=== PATIENT | female | born 1935 | race Caucasian/White ===

== ENCOUNTER 2017-06-20 16:44 | Inpatient (IN) | payer MEDICARE ==
[~2017-06-20] VITALS: Ht 172.7 cm; Wt 54.0 kg
[~2017-06-20 16:44] MED LIST: ALENDRONATE SOD10 MG ORAL; BUPROPION HCL100 MG ORAL; DIAZEPAM10 MG ORAL; IBUPROFEN200 MG ORAL; SUMATRIPTAN10 GM MC
[2017-06-20 16:45] VITALS: BP 154/80
[2017-06-20] MEDS ORDERED: Morphine Sulfate 4mg/ml Inj IVP ONE (17:15)
[2017-06-20 17:42] LABS: BASOPHILS % (AUTO) 1.2 % (0.0-2.0); EOSINOPHILS % (AUTO) 2.6 % (0.0-3.0); LYMPHOCYTES % (AUTO) 17.1 % (20.0-45.0); MEAN CORPUSCULAR HEMOGLOBIN 27.3 PG (27.0-31.0); MEAN CORPUSCULAR HGB CONC 31.1 G/DL (32.0-36.0); MEAN CORPUSCULAR VOLUME 88 FL (80-99); MEAN PLATELET VOLUME 6.2 FL (6.5-10.1); MONOCYTES % (AUTO) 5.2 % (1.0-10.0); NEUTROPHILS % (AUTO) 73.9 % (45.0-75.0); PLATELET COUNT 497 K/UL (150-450); RED BLOOD COUNT 3.83 M/UL (4.20-5.40); WHITE BLOOD COUNT 8.3 K/UL (4.8-10.8)
--- NOTE | 2017-06-20 17:50 | Emergency Room Report ---
History of Present Illness General Chief Complaint: Lower Extremity Injury Source: EMS Present Illness HPI Patient is an 82-year-old female who presented after increased right-sided hip pain after fall. Patient reports having been vacuuming when subsequently she fell backward onto her right side. She reports having increased pain to her right hip as well as to the back of her head. She denied loss of consciousness. She denied having any fever she reports minimal pain at this time.The patient was seen by physician classroom assistant initially. The patient noted have difficulty with movement of her right lower extremity Allergies: Coded Allergies: No Known Allergies (Unverified , 12/28/13) Patient History Reviewed Nursing Documentation: PMH: Agreed, PSxH: Agreed Nursing Documentation-PMH Past Medical History: No History, Except For Hx Cardiac Problems: Yes - MITRAL VALVE PROLAPSE Hx Hypertension: Yes Hx Cancer: No Hx Gastrointestinal Problems: No Hx Neurological Problems: Yes Hx Headaches: Yes - MIGRAINES IN THE PAST Review of Systems All Other Systems: negative except mentioned in HPI Physical Exam Vital Signs Date Time Temp Pulse Resp B/P (MAP) Pulse Ox O2 Delivery O2 Flow Rate FiO2 06/20/17 16:35 97.7 84 18 144/79 96 Room Air Sp02 EP Interpretation: reviewed, normal General Appearance: normal inspection, well appearing, no apparent distress, alert, GCS 15 Head: atraumatic ENT: normal ENT inspection, hearing grossly normal, normal voice Neck: normal inspection, full range of motion, supple, no bony tend Respiratory: normal inspection, lungs clear, normal breath sounds, no respiratory distress, no retraction, no wheezing Cardiovascular #1: regular rate, rhythm, no edema Gastrointestinal: normal inspection, normal bowel sounds, non tender, soft, no guarding, no hernia Genitourinary: no CVA tenderness Musculoskeletal: normal inspection, back normal, decreased range of motion - right hip Neurologic: normal inspection, alert, responsive, speech normal Psychiatric: normal inspection, judgement/insight normal, mood/affect normal Skin: normal inspection, normal color, no rash Medical Decision Making Diagnostic Impression: Primary Impression: Hip fracture Additional Impression: Mitral valve prolapse ER Course Patient presented after a fall . Differential diagnosis included but was not limited to fracture, contusion, vascular insufficiency, aortic aneurysm, cellulitis.Because of complexity of patient's case laboratory testing and imaging studies were ordered. CT imaging of the right foot showed a comminuted right intertrochanteric fracture. The patient was given IV pain medications. The patient noted be followed by Dr. Dangelo Pierson was contacted for inpatient management. Dr. Pedro Decker was contacted for Orthopedic consult. The patient refused CT imaging of her head. Labs Test 06/21/17 06:14 06/22/17 08:05 06/23/17 04:45 Thyroid Stimulating Hormone (TSH) 3.580 uiU/mL (0.358-3.740) Differential Total Cells Counted 100 Neutrophils % (Manual) 65 % (45-75) Lymphocytes % (Manual) 21 % (20-45) Monocytes % (Manual) 8 % (1-10) Eosinophils % (Manual) 5 % (0-3) Basophils % (Manual) 1 % (0-2) Band Neutrophils 0 % (0-8) Platelet Estimate Adequate Platelet Morphology Normal Hypochromasia 2+ Anisocytosis 1+ Spherocytes 1+ Erythrocyte Sedimentation Rate 39 MM/HR (0-30) Reticulocyte Count 2.9 % (0.0-2.0) Iron Level 42 ug/dL (50-175) Total Iron Binding Capacity 219 ug/dL (250-450) Percent Iron Saturation 19 % (15-50) Unsaturated Iron Binding 177 ug/dL (112-346) Lactate Dehydrogenase 263 U/L (81-234) Vitamin B12 Level 1105 PG/ML (193-986) Folate 65.6 NG/ML (8.6-58.9) White Blood Count 7.4 K/UL (4.8-10.8) Red Blood Count 3.15 M/UL (4.20-5.40) Hemoglobin 9.2 G/DL (12.0-16.0) Hematocrit 27.5 % (37.0-47.0) Mean Corpuscular Volume 87 FL (80-99) Mean Corpuscular Hemoglobin 29.1 PG (27.0-31.0) Mean Corpuscular Hemoglobin Concent 33.3 G/DL (32.0-36.0) Red Cell Distribution Width 11.9 % (11.6-14.8) Platelet Count 437 K/UL (150-450) Mean Platelet Volume 6.2 FL (6.5-10.1) Neutrophils (%) (Auto) 66.2 % (45.0-75.0) Lymphocytes (%) (Auto) 20.8 % (20.0-45.0) Monocytes (%) (Auto) 8.1 % (1.0-10.0) Eosinophils (%) (Auto) 3.6 % (0.0-3.0) Basophils (%) (Auto) 1.3 % (0.0-2.0) Prothrombin Time 10.3 SEC (9.30-11.50) Prothromb Time International Ratio 1.0 (0.9-1.1) Activated Partial Thromboplast Time 26 SEC (23-33) Sodium Level 141 MMOL/L (136-145) Potassium Level 3.8 MMOL/L (3.5-5.1) Chloride Level 106 MMOL/L (98-107) Carbon Dioxide Level 31 MMOL/L (21-32) Anion Gap 4 mmol/L (5-15) Blood Urea Nitrogen 10 mg/dL (7-18) Creatinine 0.7 MG/DL (0.55-1.30) Estimat Glomerular Filtration Rate mL/min (>60) Glucose Level 93 MG/DL (74-106) Calcium Level 8.4 MG/DL (8.5-10.1) Phosphorus Level 3.2 MG/DL (2.5-4.9) Magnesium Level 1.7 MG/DL (1.8-2.4) Total Bilirubin 0.5 MG/DL (0.2-1.0) Aspartate Amino Transf (AST/SGOT) 20 U/L (15-37) Alanine Aminotransferase (ALT/SGPT) 19 U/L (12-78) Alkaline Phosphatase 73 U/L (46-116) Total Protein 5.5 G/DL (6.4-8.2) Albumin 2.6 G/DL (3.4-5.0) Globulin 2.9 g/dL Albumin/Globulin Ratio 0.9 (1.0-2.7) Last Vital Signs Date Time Temp Pulse Resp B/P (MAP) Pulse Ox O2 Delivery O2 Flow Rate FiO2 06/20/17 16:35 97.7 84 18 144/79 96 Room Air Status: unchanged Disposition: ADMITTED INPATIENT Condition: Serious Reji Hudson Jun 20, 2017 17:50
[2017-06-20 17:58] LABS: ANION GAP 10 mmol/L (5-15); CALCIUM 9.7 MG/DL (8.5-10.1); CARBON DIOXIDE 27 MMOL/L (21-32); CHLORIDE 108 MMOL/L (98-107); CREATININE 0.9 MG/DL (0.55-1.30); POTASSIUM 4.3 MMOL/L (3.5-5.1); SODIUM 145 MMOL/L (136-145)
[2017-06-20 17:59] LABS: PROTHROMBIN TIME 10.2 SEC (9.30-11.50)
[2017-06-20 18:03] LABS: ALANINE AMINOTRANSFERASE 22 U/L (12-78); ALBUMIN/GLOBULIN RATIO 1.1 (1.0-2.7); ASPARTATE AMINO TRANSFERASE 27 U/L (15-37); TOTAL PROTEIN 6.6 G/DL (6.4-8.2)
[2017-06-20] MEDS ORDERED: WELLBUTRIN SR100 MG ORAL (18:18)
[2017-06-20] MEDS ORDERED: AMLODIPINE BESYL5 MG ORAL (18:20)
[2017-06-20] MEDS ORDERED: ATORVASTATIN CA20 MG ORAL (18:22)
[2017-06-20] MEDS ORDERED: ASPIRIN81 MG ORAL (18:22)
[2017-06-20 19:00] VITALS: BP 116/85
[2017-06-20] MEDS ORDERED: IBUPROFEN600 MG ORAL (19:02)
[2017-06-20 20:00] VITALS: BP 136/70
[2017-06-20] MEDS ORDERED: Mylanta II UD 30ml ORAL PRN (20:00)
[2017-06-20] MEDS ORDERED: Morphine Sulfate 4mg/ml Inj IVP PRN (20:00)
[2017-06-20] MEDS ORDERED: LORazepam Inj 2mg/ml 1ml IV PRN (20:00)
[2017-06-20] MEDS ORDERED: Miralax 17gm pkt ORAL PRN (20:00)
[2017-06-20] MEDS: Atorvastatin 20mg tab ORAL SCH (22:16)
[2017-06-20] MEDS: Heparin 5000 units/ml inj SUBQ SCH (22:17)
[2017-06-20] MEDS: D5 1/2NS 1,000 ML IV SCH (22:18)
[2017-06-20] MEDS: Morphine Sulfate 2mg/ml Inj IVP PRN (22:41)
[2017-06-21] VITALS: BP 134/76
[2017-06-21 04:00] VITALS: BP 131/74
[2017-06-21 07:23] LABS: BASOPHILS % (AUTO) 2.1 % (0.0-2.0); EOSINOPHILS % (AUTO) 5.9 % (0.0-3.0); LYMPHOCYTES % (AUTO) 24.7 % (20.0-45.0); MEAN CORPUSCULAR HEMOGLOBIN 27.8 PG (27.0-31.0); MEAN CORPUSCULAR HGB CONC 31.7 G/DL (32.0-36.0); MEAN CORPUSCULAR VOLUME 88 FL (80-99); MEAN PLATELET VOLUME 6.2 FL (6.5-10.1); NEUTROPHILS % (AUTO) 59.3 % (45.0-75.0); PLATELET COUNT 431 K/UL (150-450); WHITE BLOOD COUNT 6.8 K/UL (4.8-10.8)
[2017-06-21 07:46] LABS: ALANINE AMINOTRANSFERASE 19 U/L (12-78); ALBUMIN/GLOBULIN RATIO 0.9 (1.0-2.7); ANION GAP 7 mmol/L (5-15); ASPARTATE AMINO TRANSFERASE 26 U/L (15-37); CALCIUM 8.8 MG/DL (8.5-10.1); CARBON DIOXIDE 27 MMOL/L (21-32); CHLORIDE 109 MMOL/L (98-107); CREATININE 0.8 MG/DL (0.55-1.30); POTASSIUM 3.7 MMOL/L (3.5-5.1); SODIUM 143 MMOL/L (136-145); TOTAL PROTEIN 5.9 G/DL (6.4-8.2)
[2017-06-21 08:33] VITALS: BP 128/64
[2017-06-21] MEDS: Heparin 5000 units/ml inj SUBQ SCH ×2 (09:26→20:38)
[2017-06-21] MEDS: Morphine Sulfate 2mg/ml Inj IVP PRN ×3 (09:29→22:00)
--- NOTE | 2017-06-21 10:11 | Diagnostic Imaging Report ---
Indication: Right knee pain Technique: XRAY KNEE THREE VIEWS RIGHT Comparison: None Findings: There is no radiographically evident displaced cortical fracture or dislocation. There is patchy sclerosis involving the anterior proximal tibia. No obvious joint effusion is seen. There is osteopenia. Atherosclerotic changes are noted. Impression: No renographic the evident displaced cortical fracture or dislocation. Mild patchy sclerosis involving the anterior proximal tibia. Subtle insufficiency fracture cannot be excluded. Followup/further evaluation recommended as indicated. Finding discussed with Dr. Bergman 04/21/17 by phone.
--- NOTE | 2017-06-21 10:14 | Diagnostic Imaging Report ---
Indication: Pelvic pain status post fall Technique: CT pelvis was performed utilizing automated exposure control without intravenous contrast material. Axial and coronal images were generated. CT dose: Total DLP 399 mGycm; CTDI vol 10.9 mGy Comparison: None Findings: There is a comminuted right proximal femur intertrochanteric fracture with mild impaction and angulation. Degenerative changes of the spine are noted. There is grade 1 anterolisthesis of L5 on S1. Atherosclerotic changes are seen. There is colonic diverticulosis. Osteopenia is noted. Mild degenerative spurring of the bilateral hips are seen. Impression: Acute comminuted right proximal femur intertrochanteric fracture. The CT scanner at [facility] is accredited by the [employer] and the scans are performed using protocols designed to limit radiation exposure to as low as reasonably achievable to attain images of sufficient resolution adequate for diagnostic evaluation.
[2017-06-21 11:52] VITALS: BP 141/70
[2017-06-21] MEDS: D5 1/2NS 1,000 ML IV SCH (15:09)
[2017-06-21 16:00] VITALS: BP 139/69
--- NOTE | 2017-06-21 16:01 | Consultation ---
Consult Note Consult Note patient seen/evaluated. right hip IT fx. 2D echo tomorrow. Optimization for surgery tomorrow and proceed with surgery Friday afternoon. Risk/Benefit and complications were discussed and patient understands and agrees.\ Thank you RITA MERINO Jun 21, 2017 16:01
--- NOTE | 2017-06-21 16:54 | Consultation ---
History of Present Illness General Date patient seen: Jun 20, 2017 Chief Complaint: Lower Extremity Injury Reason for Consultation: inpatient management Present Illness HPI Patient is an 82-year-old female with hx of depression, anxiety, HTN presented to ER with CC of increased right-sided hip pain after fall. Patient reports having been vacuuming when subsequently she fell backward onto her right side. She reports having increased pain to her right hip as well as to the back of her head. She denied loss of consciousness. She was diagnosed to have right hip fracture and admitted for further work up. Allergies: Coded Allergies: No Known Allergies (Unverified , 12/28/13) Medication History Scheduled Amlodipine Besylate* (Amlodipine Besylate*), 5 MG ORAL DAILY, (Reported) Aspirin* (Aspirin*), 81 MG ORAL DAILY, (Reported) Atorvastatin Calcium* (Atorvastatin Calcium*), 20 MG ORAL BEDTIME, (Reported) Bupropion Sr* (Wellbutrin Sr*), 150 MG ORAL TWICE A DAY, (Reported) Diazepam* (Diazepam*), 10 MG ORAL PRN, (Reported) Ibuprofen (Ibuprofen*), 200 MG ORAL Q6H, (Reported) Discontinued Medications Alendronate Sodium* (Fosamax*), Unknown Dose ORAL QWEEK, (Reported) Discontinued Reason: Pt stopped taking med Bupropion Hcl* (Bupropion Hcl*), 150 MG ORAL DAILY, (Reported) Discontinued Reason: Medication dose changed Sumatriptan (Sumatriptan), 10 GM MC PRN, (Reported) Discontinued Reason: Pt stopped taking med Patient History Healthcare decision maker JESSICA TIMMONS Resuscitation status Full Code Advanced Directive on File N/A Past Medical/Surgical History Past Medical/Surgical History: (1) Depression (2) Mitral valve prolapse Review of Systems All Other Systems: negative except mentioned in HPI Physical Exam General Appearance: WD/WN Lines, tubes and drains: peripheral HEENT: normocephalic, atraumatic Neck: non-tender, normal alignment Respiratory/Chest: chest wall non-tender, normal breath sounds Cardiovascular/Chest: normal peripheral pulses, normal rate Abdomen: normal bowel sounds, non tender Extremities: normal range of motion, non-tender Skin Exam: normal pigmentation 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 Last 24 Hour Vital Signs Date Time Temp Pulse Resp B/P (MAP) Pulse Ox O2 Delivery O2 Flow Rate FiO2 06/21/17 15:22 97.0 06/21/17 11:52 97.0 80 18 141/70 100 Room Air 06/21/17 09:22 77 128/64 06/21/17 08:33 99.3 77 18 128/64 99 Room Air 06/21/17 04:00 97.9 84 18 131/74 95 Room Air 06/21/17 00:00 97.9 81 18 134/76 97 Room Air 06/20/17 20:00 98.3 89 18 136/70 96 Room Air 06/20/17 19:00 97.9 98 19 116/85 100 Room Air 06/20/17 19:00 97.7 98 18 116/85 100 Room Air 06/20/17 18:11 97.9 Intake and Output 06/21/17 06/22/17 19:00 07:00 Intake Total 810 ml Balance 810 ml Intake Oral 360 ml IV Total 450 ml # Voids 2 Laboratory Tests Test 06/20/17 17:30 06/21/17 06:14 White Blood Count 8.3 K/UL (4.8-10.8) 6.8 K/UL (4.8-10.8) Red Blood Count 3.83 M/UL (4.20-5.40) L 3.40 M/UL (4.20-5.40) L Hemoglobin 10.5 G/DL (12.0-16.0) L 9.4 G/DL (12.0-16.0) L Hematocrit 33.6 % (37.0-47.0) L 29.8 % (37.0-47.0) L Mean Corpuscular Volume 88 FL (80-99) 88 FL (80-99) Mean Corpuscular Hemoglobin 27.3 PG (27.0-31.0) 27.8 PG (27.0-31.0) Mean Corpuscular Hemoglobin Concent 31.1 G/DL (32.0-36.0) L 31.7 G/DL (32.0-36.0) L Red Cell Distribution Width 12.0 % (11.6-14.8) 12.0 % (11.6-14.8) Platelet Count 497 K/UL (150-450) H 431 K/UL (150-450) Mean Platelet Volume 6.2 FL (6.5-10.1) L 6.2 FL (6.5-10.1) L Neutrophils (%) (Auto) 73.9 % (45.0-75.0) 59.3 % (45.0-75.0) Lymphocytes (%) (Auto) 17.1 % (20.0-45.0) L 24.7 % (20.0-45.0) Monocytes (%) (Auto) 5.2 % (1.0-10.0) 8.0 % (1.0-10.0) Eosinophils (%) (Auto) 2.6 % (0.0-3.0) 5.9 % (0.0-3.0) H Basophils (%) (Auto) 1.2 % (0.0-2.0) 2.1 % (0.0-2.0) H Prothrombin Time 10.2 SEC (9.30-11.50) Prothromb Time International Ratio 1.0 (0.9-1.1) Activated Partial Thromboplast Time 23 SEC (23-33) Sodium Level 145 MMOL/L (136-145) 143 MMOL/L (136-145) Potassium Level 4.3 MMOL/L (3.5-5.1) 3.7 MMOL/L (3.5-5.1) Chloride Level 108 MMOL/L (98-107) H 109 MMOL/L (98-107) H Carbon Dioxide Level 27 MMOL/L (21-32) 27 MMOL/L (21-32) Anion Gap 10 mmol/L (5-15) 7 mmol/L (5-15) Blood Urea Nitrogen 24 mg/dL (7-18) H 18 mg/dL (7-18) Creatinine 0.9 MG/DL (0.55-1.30) 0.8 MG/DL (0.55-1.30) Estimat Glomerular Filtration Rate mL/min (>60) mL/min (>60) Glucose Level 90 MG/DL (74-106) 85 MG/DL (74-106) Calcium Level 9.7 MG/DL (8.5-10.1) 8.8 MG/DL (8.5-10.1) Total Bilirubin 0.7 MG/DL (0.2-1.0) 0.6 MG/DL (0.2-1.0) Aspartate Amino Transf (AST/SGOT) 27 U/L (15-37) 26 U/L (15-37) Alanine Aminotransferase (ALT/SGPT) 22 U/L (12-78) 19 U/L (12-78) Alkaline Phosphatase 78 U/L (46-116) 66 U/L (46-116) Total Protein 6.6 G/DL (6.4-8.2) 5.9 G/DL (6.4-8.2) L Albumin 3.5 G/DL (3.4-5.0) 2.8 G/DL (3.4-5.0) L Globulin 3.1 g/dL 3.1 g/dL Albumin/Globulin Ratio 1.1 (1.0-2.7) 0.9 (1.0-2.7) L Thyroid Stimulating Hormone (TSH) 3.580 uiU/mL (0.358-3.740) Height (Feet): 5 Height (Inches): 8.00 Weight (Pounds): 119 Medications Current Medications Medications (Trade) Dose Ordered Sig/Jennifer Route PRN Reason Start Time Stop Time Status Last Admin Dose Admin Acetaminophen (Tylenol) 650 mg Q4H PRN ORAL fever 06/20/17 20:00 07/20/17 19:59 Al Hydroxide/Mg Hydroxide (Mylanta II) 30 ml Q6H PRN ORAL dyspepsia 06/20/17 20:00 07/20/17 19:59 Amlodipine Besylate (Norvasc) 5 mg DAILY ORAL 06/21/17 09:00 07/21/17 08:59 06/21/17 09:22 Atorvastatin Calcium (Lipitor) 20 mg BEDTIME ORAL 06/20/17 21:00 07/20/17 20:59 06/20/17 22:16 Bupropion HCl (Wellbutrin SR) 150 mg TWICE A DAY ORAL 06/21/17 21:00 07/21/17 20:59 Dextrose (Dextrose 50%) STAT PRN IV Hypoglycemia 06/20/17 20:00 07/20/17 19:59 Dextrose/Sodium Chloride 1,000 ml @ 50 mls/hr Q20H IV 06/20/17 20:30 1/7/18 20:29 06/21/17 15:09 Heparin Sodium (Porcine) (Heparin 5000 units/ml) 5,000 units EVERY 12 HOURS SUBQ 06/20/17 21:00 07/20/17 20:59 06/21/17 09:26 Lorazepam (Ativan 2mg/ml 1ml) 0.5 mg Q4H PRN IV For Anxiety 06/20/17 20:00 06/27/17 19:59 Morphine Sulfate (Morphine Sulfate) 2 mg Q4H PRN IVP For Pain 4-6 06/20/17 20:00 06/27/17 19:59 06/21/17 14:52 Morphine Sulfate (Morphine Sulfate) 4 mg Q4H PRN IVP For Pain 7-10 06/20/17 20:00 06/27/17 19:59 Ondansetron HCl (Zofran) 4 mg Q6H PRN IVP Nausea & Vomiting 06/20/17 20:00 07/20/17 19:59 Polyethylene Glycol (Miralax) 17 gm HSPRN PRN ORAL Constipation 06/20/17 20:00 07/20/17 19:59 Sodium Chloride 1,000 ml @ 75 mls/hr [id number] IVLG 06/22/17 23:55 07/22/17 23:54 Zolpidem Tartrate (Ambien) 5 mg HSPRN PRN ORAL Insomnia 06/20/17 20:00 06/27/17 19:59 Assessment/Plan Problem List: (1) Hip fracture ICD Codes: S72.009A - Fracture of unspecified part of neck of unspecified femur , initial encounter for closed fracture SNOMED: 569161674 (2) Depression ICD Codes: F32.9 - Depression SNOMED: 59917450 (3) Mitral valve prolapse ICD Codes: I34.1 - Mitral valve prolapse SNOMED: 881483509 Assessment/Plan surgical evaluation echo symptomatic treatment dvt prophylaxis. MINDI WALDEN Jun 21, 2017 16:53
--- NOTE | 2017-06-21 16:55 | Pulmonology Progress Note ---
Assessment/Plan Problems: (1) Hip fracture (2) Depression (3) Mitral valve prolapse Assessment/Plan seen by ortho pain is controlled dvt prophylaxis Echo pending Subjective ROS Limited/Unobtainable: No Constitutional: Reports: no symptoms HEENT: Repors: no symptoms Respiratory: Reports: no symptoms Cardiovascular: Reports: no symptoms Allergies: Coded Allergies: No Known Allergies (Unverified , 12/28/13) Objective Last 24 Hour Vital Signs Date Time Temp Pulse Resp B/P (MAP) Pulse Ox O2 Delivery O2 Flow Rate FiO2 06/21/17 15:22 97.0 06/21/17 11:52 97.0 80 18 141/70 100 Room Air 06/21/17 09:22 77 128/64 06/21/17 08:33 99.3 77 18 128/64 99 Room Air 06/21/17 04:00 97.9 84 18 131/74 95 Room Air 06/21/17 00:00 97.9 81 18 134/76 97 Room Air 06/20/17 20:00 98.3 89 18 136/70 96 Room Air 06/20/17 19:00 97.9 98 19 116/85 100 Room Air 06/20/17 19:00 97.7 98 18 116/85 100 Room Air 06/20/17 18:11 97.9 Intake and Output 06/21/17 06/22/17 19:00 07:00 Intake Total 810 ml Balance 810 ml Intake Oral 360 ml IV Total 450 ml # Voids 2 General Appearance: WD/WN HEENT: normocephalic, atraumatic Respiratory/Chest: chest wall non-tender, lungs clear, normal breath sounds Breasts: no masses Cardiovascular: normal peripheral pulses, normal rate Abdomen: normal bowel sounds, soft, non tender, no organomegaly Genitourinary: normal external genitalia Extremities: no cyanosis Skin: no rash, no ulcers 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, no motor/sensory deficits Laboratory Tests 06/20/17 17:30: White Blood Count 8.3, Red Blood Count 3.83L, Hemoglobin 10.5L, Hematocrit 33.6L , Mean Corpuscular Volume 88, Mean Corpuscular Hemoglobin 27.3, Mean Corpuscular Hemoglobin Concent 31.1L, Red Cell Distribution Width 12.0, Platelet Count 497H, Mean Platelet Volume 6.2L, Neutrophils (%) (Auto) 73.9, Lymphocytes (%) (Auto) 17.1L, Monocytes (%) (Auto) 5.2, Eosinophils (%) (Auto) 2.6, Basophils (%) (Auto) 1.2, Prothrombin Time 10.2, Prothromb Time International Ratio 1.0, Activated Partial Thromboplast Time 23, Sodium Level 145, Potassium Level 4.3, Chloride Level 108H, Carbon Dioxide Level 27, Anion Gap 10, Blood Urea Nitrogen 24H, Creatinine 0.9, Estimat Glomerular Filtration Rate , Glucose Level 90, Calcium Level 9.7, Total Bilirubin 0.7, Aspartate Amino Transf (AST/SGOT) 27, Alanine Aminotransferase (ALT/SGPT) 22, Alkaline Phosphatase 78, Total Protein 6.6, Albumin 3.5, Globulin 3.1, Albumin/Globulin Ratio 1.1 06/21/17 06:14: White Blood Count 6.8, Red Blood Count 3.40L, Hemoglobin 9.4L, Hematocrit 29.8L , Mean Corpuscular Volume 88, Mean Corpuscular Hemoglobin 27.8, Mean Corpuscular Hemoglobin Concent 31.7L, Red Cell Distribution Width 12.0, Platelet Count 431, Mean Platelet Volume 6.2L, Neutrophils (%) (Auto) 59.3, Lymphocytes (%) (Auto) 24.7, Monocytes (%) (Auto) 8.0, Eosinophils (%) (Auto) 5.9H, Basophils (%) (Auto) 2.1H, Sodium Level 143, Potassium Level 3.7, Chloride Level 109H, Carbon Dioxide Level 27, Anion Gap 7, Blood Urea Nitrogen 18, Creatinine 0.8, Estimat Glomerular Filtration Rate , Glucose Level 85, Calcium Level 8.8, Total Bilirubin 0.6, Aspartate Amino Transf (AST/SGOT) 26, Alanine Aminotransferase (ALT/SGPT) 19, Alkaline Phosphatase 66, Total Protein 5.9L, Albumin 2.8L, Globulin 3.1, Albumin/Globulin Ratio 0.9L, Thyroid Stimulating Hormone (TSH) 3.580 Current Medications Medications (Trade) Dose Ordered Sig/Jennifer Route PRN Reason Start Time Stop Time Status Last Admin Dose Admin Acetaminophen (Tylenol) 650 mg Q4H PRN ORAL fever 06/20/17 20:00 07/20/17 19:59 Al Hydroxide/Mg Hydroxide (Mylanta II) 30 ml Q6H PRN ORAL dyspepsia 06/20/17 20:00 07/20/17 19:59 Amlodipine Besylate (Norvasc) 5 mg DAILY ORAL 06/21/17 09:00 07/21/17 08:59 06/21/17 09:22 Atorvastatin Calcium (Lipitor) 20 mg BEDTIME ORAL 06/20/17 21:00 07/20/17 20:59 06/20/17 22:16 Bupropion HCl (Wellbutrin SR) 150 mg TWICE A DAY ORAL 06/21/17 21:00 07/21/17 20:59 Dextrose (Dextrose 50%) STAT PRN IV Hypoglycemia 06/20/17 20:00 07/20/17 19:59 Dextrose/Sodium Chloride 1,000 ml @ 50 mls/hr Q20H IV 06/20/17 20:30 07/20/17 20:29 06/21/17 15:09 Heparin Sodium (Porcine) (Heparin 5000 units/ml) 5,000 units EVERY 12 HOURS SUBQ 06/20/17 21:00 07/20/17 20:59 06/21/17 09:26 Lorazepam (Ativan 2mg/ml 1ml) 0.5 mg Q4H PRN IV For Anxiety 06/20/17 20:00 06/27/17 19:59 Morphine Sulfate (Morphine Sulfate) 2 mg Q4H PRN IVP For Pain 4-6 06/20/17 20:00 06/27/17 19:59 06/21/17 14:52 Morphine Sulfate (Morphine Sulfate) 4 mg Q4H PRN IVP For Pain 7-10 06/20/17 20:00 06/27/17 19:59 Ondansetron HCl (Zofran) 4 mg Q6H PRN IVP Nausea & Vomiting 06/20/17 20:00 07/20/17 19:59 Polyethylene Glycol (Miralax) 17 gm HSPRN PRN ORAL Constipation 06/20/17 20:00 07/20/17 19:59 Sodium Chloride 1,000 ml @ 75 mls/hr [id number] IVLG 06/22/17 23:55 07/22/17 23:54 Zolpidem Tartrate (Ambien) 5 mg HSPRN PRN ORAL Insomnia 06/20/17 20:00 06/27/17 19:59 MINDI WALDEN Jun 21, 2017 16:55
[2017-06-21] MEDS ORDERED: D5 1/2NS 1000ml IV ONE (17:26)
--- NOTE | 2017-06-21 19:50 | History & Physical ---
History and Physical History & Physicial Thomas Pierson MD Jun 21, 2017 19:50
[2017-06-21 20:00] VITALS: BP 128/62
[2017-06-21] MEDS: Atorvastatin 20mg tab ORAL SCH (20:33)
[2017-06-21] MEDS: BuPROPion SR 150mg tab ORAL SCH ×2 (20:33→20:38)
[2017-06-22 04:00] VITALS: BP 112/65
[2017-06-22] MEDS: Zolpidem 5mg tab ORAL PRN (04:47)
[2017-06-22] MEDS: Morphine Sulfate 2mg/ml Inj IVP PRN ×3 (07:34→20:46)
[2017-06-22 08:13] VITALS: BP 124/63
[2017-06-22] MEDS: BuPROPion SR 150mg tab ORAL SCH ×2 (09:00→17:02)
[2017-06-22 09:06] LABS: BASOPHILS % (AUTO) 1.2 % (0.0-2.0); EOSINOPHILS % (AUTO) 4.3 % (0.0-3.0); LYMPHOCYTES % (AUTO) 22.4 % (20.0-45.0); MEAN CORPUSCULAR HEMOGLOBIN 28.7 PG (27.0-31.0); MEAN CORPUSCULAR HGB CONC 32.8 G/DL (32.0-36.0); MEAN CORPUSCULAR VOLUME 88 FL (80-99); MEAN PLATELET VOLUME 6.2 FL (6.5-10.1); MONOCYTES % (AUTO) 7.7 % (1.0-10.0); NEUTROPHILS % (AUTO) 64.5 % (45.0-75.0); PLATELET COUNT 451 K/UL (150-450); RED BLOOD COUNT 3.28 M/UL (4.20-5.40); RED CELL DISTRIBUTION WIDTH 11.8 % (11.6-14.8)
[2017-06-22 09:17] LABS: LACTATE DEHYDROGENASE 263 U/L (81-234)
[2017-06-22] MEDS: Heparin 5000 units/ml inj SUBQ SCH ×2 (09:27→20:56)
[2017-06-22 10:10] LABS: PATH BLOOD SMEAR/OMC SENT TO PATHOLOGIST; RETICULOCYTE COUNT 2.9 % (0.0-2.0)
[2017-06-22 10:20] LABS: ERYTHROCYTE SEDIMENTATION RATE 39 MM/HR (0-30)
[2017-06-22 10:30] LABS: FOLIC ACID 65.6 NG/ML (8.6-58.9); IRON 42 ug/dL (50-175); TOTAL IRON BINDING CAPACITY 219 ug/dL (250-450)
[2017-06-22 10:59] LABS: BAND NEUTROPHILS % (MANUAL) 0 % (0-8); BASOPHILS % (MANUAL) 1 % (0-2); EOSINOPHILS % (MANUAL) 5 % (0-3); LYMPHOCYTES % (MANUAL) 21 % (20-45); NEUTROPHILS % (MANUAL) 65 % (45-75); PLATELET ESTIMATE ADEQUATE; PLATELET MORPHOLOGY NORMAL; TOTAL CELLS COUNTED 100
[2017-06-22 11:00] LABS: ANISOCYTOSIS 1+; HYPOCHROMASIA 2+; SPHEROCYTES 1+
[2017-06-22 11:54] VITALS: BP 117/63
[2017-06-22] MEDS: D5 1/2NS 1,000 ML IV SCH (12:24)
--- NOTE | 2017-06-22 15:15 | Consultation ---
History of Present Illness General Date patient seen: Jun 22, 2017 Present Illness Allergies: Coded Allergies: No Known Allergies (Unverified , 12/28/13) Medication History Scheduled Amlodipine Besylate* (Amlodipine Besylate*), 5 MG ORAL DAILY, (Reported) Aspirin* (Aspirin*), 81 MG ORAL DAILY, (Reported) Atorvastatin Calcium* (Atorvastatin Calcium*), 20 MG ORAL BEDTIME, (Reported) Bupropion Sr* (Wellbutrin Sr*), 150 MG ORAL TWICE A DAY, (Reported) Diazepam* (Diazepam*), 10 MG ORAL PRN, (Reported) Ibuprofen (Ibuprofen*), 200 MG ORAL Q6H, (Reported) Discontinued Medications Alendronate Sodium* (Fosamax*), Unknown Dose ORAL QWEEK, (Reported) Discontinued Reason: Pt stopped taking med Bupropion Hcl* (Bupropion Hcl*), 150 MG ORAL DAILY, (Reported) Discontinued Reason: Medication dose changed Sumatriptan (Sumatriptan), 10 GM MC PRN, (Reported) Discontinued Reason: Pt stopped taking med Patient History Healthcare decision maker JESSICA TIMMONS Resuscitation status Full Code Advanced Directive on File N/A Physical Exam Last 24 Hour Vital Signs Date Time Temp Pulse Resp B/P (MAP) Pulse Ox O2 Delivery O2 Flow Rate FiO2 06/22/17 11:54 98.0 72 19 117/63 97 06/22/17 09:22 72 124/63 06/22/17 08:13 99.0 72 20 124/63 98 06/22/17 08:04 99.0 06/22/17 04:00 98.1 75 19 112/65 99 06/22/17 04:00 Room Air 06/21/17 20:00 Room Air 06/21/17 20:00 98.9 83 18 128/62 100 06/21/17 16:00 97.8 88 18 139/69 100 Room Air Intake and Output 06/22/17 06/23/17 19:00 07:00 Intake Total 830 ml Balance 830 ml Intake Oral 680 ml IV Total 150 ml # Voids 1 Laboratory Tests Test 06/22/17 08:05 White Blood Count 7.0 K/UL (4.8-10.8) Red Blood Count 3.28 M/UL (4.20-5.40) L Hemoglobin 9.4 G/DL (12.0-16.0) L Hematocrit 28.7 % (37.0-47.0) L Mean Corpuscular Volume 88 FL (80-99) Mean Corpuscular Hemoglobin 28.7 PG (27.0-31.0) Mean Corpuscular Hemoglobin Concent 32.8 G/DL (32.0-36.0) Red Cell Distribution Width 11.8 % (11.6-14.8) Platelet Count 451 K/UL (150-450) H Mean Platelet Volume 6.2 FL (6.5-10.1) L Neutrophils (%) (Auto) 64.5 % (45.0-75.0) Lymphocytes (%) (Auto) 22.4 % (20.0-45.0) Monocytes (%) (Auto) 7.7 % (1.0-10.0) Eosinophils (%) (Auto) 4.3 % (0.0-3.0) H Basophils (%) (Auto) 1.2 % (0.0-2.0) Differential Total Cells Counted 100 Neutrophils % (Manual) 65 % (45-75) Lymphocytes % (Manual) 21 % (20-45) Monocytes % (Manual) 8 % (1-10) Eosinophils % (Manual) 5 % (0-3) H Basophils % (Manual) 1 % (0-2) Band Neutrophils 0 % (0-8) Platelet Estimate Adequate Platelet Morphology Normal Hypochromasia 2+ Anisocytosis 1+ Spherocytes 1+ Erythrocyte Sedimentation Rate 39 MM/HR (0-30) H Reticulocyte Count 2.9 % (0.0-2.0) H Prothrombin Time 10.0 SEC (9.30-11.50) Prothromb Time International Ratio 1.0 (0.9-1.1) Activated Partial Thromboplast Time 24 SEC (23-33) Iron Level 42 ug/dL (50-175) L Total Iron Binding Capacity 219 ug/dL (250-450) L Percent Iron Saturation 19 % (15-50) Unsaturated Iron Binding 177 ug/dL (112-346) Lactate Dehydrogenase 263 U/L (81-234) H Vitamin B12 Level 1105 PG/ML (193-986) H Folate 65.6 NG/ML (8.6-58.9) H Height (Feet): 5 Height (Inches): 8.00 Weight (Pounds): 119 Medications Current Medications Medications (Trade) Dose Ordered Sig/Jennifer Route PRN Reason Start Time Stop Time Status Last Admin Dose Admin Acetaminophen (Tylenol) 650 mg Q4H PRN ORAL fever 06/20/17 20:00 07/20/17 19:59 Al Hydroxide/Mg Hydroxide (Mylanta II) 30 ml Q6H PRN ORAL dyspepsia 06/20/17 20:00 07/20/17 19:59 Amlodipine Besylate (Norvasc) 5 mg DAILY ORAL 06/21/17 09:00 07/21/17 08:59 06/22/17 09:22 Atorvastatin Calcium (Lipitor) 20 mg BEDTIME ORAL 06/20/17 21:00 07/20/17 20:59 06/21/17 20:33 Bupropion HCl (Wellbutrin SR) 150 mg TWICE A DAY ORAL 06/21/17 21:00 07/21/17 20:59 Dextrose (Dextrose 50%) STAT PRN IV Hypoglycemia 06/20/17 20:00 07/20/17 19:59 Dextrose/Sodium Chloride 1,000 ml @ 50 mls/hr Q20H IV 06/20/17 20:30 07/20/17 20:29 06/22/17 12:24 Heparin Sodium (Porcine) (Heparin 5000 units/ml) 5,000 units EVERY 12 HOURS SUBQ 06/20/17 21:00 07/20/17 20:59 06/22/17 09:27 Lorazepam (Ativan 2mg/ml 1ml) 0.5 mg Q4H PRN IV For Anxiety 06/20/17 20:00 06/27/17 19:59 Morphine Sulfate (Morphine Sulfate) 2 mg Q4H PRN IVP For Pain 4-6 06/20/17 20:00 06/27/17 19:59 06/22/17 15:03 Morphine Sulfate (Morphine Sulfate) 4 mg Q4H PRN IVP For Pain 7-10 06/20/17 20:00 06/27/17 19:59 Ondansetron HCl (Zofran) 4 mg Q6H PRN IVP Nausea & Vomiting 06/20/17 20:00 07/20/17 19:59 Polyethylene Glycol (Miralax) 17 gm HSPRN PRN ORAL Constipation 06/20/17 20:00 07/20/17 19:59 Sodium Chloride 1,000 ml @ 75 mls/hr [id number] IVLG 06/22/17 23:55 07/22/17 23:54 Zolpidem Tartrate (Ambien) 5 mg HSPRN PRN ORAL Insomnia 06/20/17 20:00 06/27/17 19:59 06/22/17 04:47 Assessment/Plan Assessment/Plan (1) Right hip pain (2) Right hip Fracture seen dictated. REBECCA JOHNSON Jun 22, 2017 15:15
[2017-06-22 15:42] VITALS: BP 119/56
--- NOTE | 2017-06-22 17:00 | Consultation ---
DATE OF CONSULTATION: 06/21/2017 ORTHOPEDIC CONSULTATION CONSULTING PHYSICIAN: Pedro Decker M.D. REASON FOR CONSULTATION: Right-sided hip fracture after a mechanical fall. BRIEF HISTORY: The patient is a pleasant 82-year-old female who was apparently ambulating and was doing some vacuuming when she lost her balance and fell backwards. There was no syncopal episode. She had significant pain about the right hip. She was admitted to [facility]. A CT scan of the right hip showed a right-sided hip intertrochanteric fracture. Orthopedic consultation was obtained. The patient is ambulatory. She lives at home independently. PAST MEDICAL HISTORY: Significant for history of mitral valve prolapse and migraine headaches. PAST SURGICAL HISTORY: Not available. MEDICATIONS: Please see chart. ALLERGIES: No known drug allergies. SOCIAL HISTORY: She does not smoke or drink. She is an ambulator and she lives independently. FAMILY HISTORY: Noncontributory. REVIEW OF SYSTEMS: Reviewed and reconciled except for cardiac issues and migraines in the past, there are no other significant findings. There are no constitutional symptoms. There is no shortness of breath or orthopnea. PHYSICAL EXAMINATION: Exam of the patient revealed this is a very pleasant lady, cooperative with the examination. Examination of the right hip revealed that she has got lot of pain about the right hip. The right hip with shortening of external rotators. She has pain over the areas. Neurovascular examination is intact. DIAGNOSTIC DATA: CT scan of the right hip is reviewed. There is evidence of intertrochanteric fracture. IMPRESSION: Right hip intertrochanteric fracture in an 82-year-old, ambulatory lady. DISCUSSION: At this time, I had a discussion with the patient. I explained to her my findings. I recommend proceeding with right hip open reduction and internal fixation with a short gamma nail. Risks, benefits, and complications of the surgery were thoroughly discussed with her. Risks of infection, bleeding, and neurovascularly complications were discussed with her. She understands and agrees. All questions were answered. At this time, we will get a 2D echo and if there is a significant finding, possibly the patient requires cardiac clearance. All questions were answered. We will proceed with surgery once she is medically optimized. Pedro Steven Decker DR: RADHA JOB#: [id number] CC: MARY
--- NOTE | 2017-06-22 17:27 | Pulmonology Progress Note ---
Assessment/Plan Problems: (1) Hip fracture (2) Depression (3) Mitral valve prolapse Assessment/Plan pain controlled pain is controlled dvt prophylaxis Echo pending Subjective ROS Limited/Unobtainable: No Constitutional: Reports: no symptoms HEENT: Repors: no symptoms Respiratory: Reports: no symptoms Allergies: Coded Allergies: No Known Allergies (Unverified , 12/28/13) Objective Last 24 Hour Vital Signs Date Time Temp Pulse Resp B/P (MAP) Pulse Ox O2 Delivery O2 Flow Rate FiO2 06/22/17 15:42 98.2 81 20 119/56 100 06/22/17 15:33 98.0 06/22/17 11:54 98.0 72 19 117/63 97 06/22/17 09:22 72 124/63 06/22/17 08:13 99.0 72 20 124/63 98 06/22/17 04:00 98.1 75 19 112/65 99 06/22/17 04:00 Room Air 06/21/17 20:00 Room Air 06/21/17 20:00 98.9 83 18 128/62 100 Intake and Output 06/22/17 06/23/17 19:00 07:00 Intake Total 830 ml Balance 830 ml Intake Oral 680 ml IV Total 150 ml # Voids 1 Objective General Appearance: WD/WN Lines, tubes and drains: peripheral, HEENT: normocephalic, atraumatic Neck: non-tender, normal alignment Respiratory/Chest: chest wall non-tender, lungs clear, normal breath sounds Breasts: no masses Cardiovascular/Chest: normal rate Abdomen: normal bowel sounds Extremities: normal range of motion Laboratory Tests 06/22/17 08:05: White Blood Count 7.0, Red Blood Count 3.28L, Hemoglobin 9.4L, Hematocrit 28.7L , Mean Corpuscular Volume 88, Mean Corpuscular Hemoglobin 28.7, Mean Corpuscular Hemoglobin Concent 32.8, Red Cell Distribution Width 11.8, Platelet Count 451H, Mean Platelet Volume 6.2L, Neutrophils (%) (Auto) 64.5, Lymphocytes (%) (Auto) 22.4, Monocytes (%) (Auto) 7.7, Eosinophils (%) (Auto) 4.3H, Basophils (%) (Auto) 1.2, Differential Total Cells Counted 100, Neutrophils % ( Manual) 65, Lymphocytes % (Manual) 21, Monocytes % (Manual) 8, Eosinophils % ( Manual) 5H, Basophils % (Manual) 1, Band Neutrophils 0, Platelet Estimate Adequate, Platelet Morphology Normal, Hypochromasia 2+, Anisocytosis 1+, Spherocytes 1+, Erythrocyte Sedimentation Rate 39H, Reticulocyte Count 2.9H, Prothrombin Time 10.0, Prothromb Time International Ratio 1.0, Activated Partial Thromboplast Time 24, Iron Level 42L, Total Iron Binding Capacity 219L, Percent Iron Saturation 19, Unsaturated Iron Binding 177, Lactate Dehydrogenase 263H, Vitamin B12 Level 1105H, Folate 65.6H Current Medications Medications (Trade) Dose Ordered Sig/Jennifer Route PRN Reason Start Time Stop Time Status Last Admin Dose Admin Acetaminophen (Tylenol) 650 mg Q4H PRN ORAL fever 06/20/17 20:00 07/20/17 19:59 Al Hydroxide/Mg Hydroxide (Mylanta II) 30 ml Q6H PRN ORAL dyspepsia 06/20/17 20:00 07/20/17 19:59 Amlodipine Besylate (Norvasc) 5 mg DAILY ORAL 06/21/17 09:00 07/21/17 08:59 06/22/17 09:22 Atorvastatin Calcium (Lipitor) 20 mg BEDTIME ORAL 06/20/17 21:00 07/20/17 20:59 06/21/17 20:33 Bupropion HCl (Wellbutrin SR) 150 mg TWICE A DAY ORAL 06/21/17 21:00 07/21/17 20:59 Dextrose (Dextrose 50%) STAT PRN IV Hypoglycemia 06/20/17 20:00 07/20/17 19:59 Dextrose/Sodium Chloride 1,000 ml @ 50 mls/hr Q20H IV 06/20/17 20:30 07/20/17 20:29 06/22/17 12:24 Heparin Sodium (Porcine) (Heparin 5000 units/ml) 5,000 units EVERY 12 HOURS SUBQ 06/20/17 21:00 07/20/17 20:59 06/22/17 09:27 Lidocaine (Lidoderm 5% PATCH) 1 patch DAILY TDERMAL 06/22/17 16:00 07/22/17 15:59 Lorazepam (Ativan 2mg/ml 1ml) 0.5 mg Q4H PRN IV For Anxiety 06/20/17 20:00 06/27/17 19:59 Morphine Sulfate (Morphine Sulfate) 2 mg Q4H PRN IVP For Pain 4-6 06/20/17 20:00 06/27/17 19:59 06/22/17 15:03 Morphine Sulfate (Morphine Sulfate) 4 mg Q4H PRN IVP For Pain 7-10 06/20/17 20:00 06/27/17 19:59 Ondansetron HCl (Zofran) 4 mg Q6H PRN IVP Nausea & Vomiting 06/20/17 20:00 07/20/17 19:59 Polyethylene Glycol (Miralax) 17 gm HSPRN PRN ORAL Constipation 06/20/17 20:00 07/20/17 19:59 Sodium Chloride 1,000 ml @ 75 mls/hr [id number] IVLG 06/22/17 23:55 07/22/17 23:54 Zolpidem Tartrate (Ambien) 5 mg HSPRN PRN ORAL Insomnia 06/20/17 20:00 06/27/17 19:59 06/22/17 04:47 MINDI WALDEN Jun 22, 2017 17:27
--- NOTE | 2017-06-22 18:01 | Internal Med Progress Note ---
Subjective Physician Name Thomas Pierson Attending Physician Thomas Pierson MD Current Medications Medications (Trade) Dose Ordered Sig/Jennifer Route PRN Reason Start Time Stop Time Status Last Admin Dose Admin Acetaminophen (Tylenol) 650 mg Q4H PRN ORAL fever 06/20/17 20:00 07/20/17 19:59 Al Hydroxide/Mg Hydroxide (Mylanta II) 30 ml Q6H PRN ORAL dyspepsia 06/20/17 20:00 07/20/17 19:59 Amlodipine Besylate (Norvasc) 5 mg DAILY ORAL 06/21/17 09:00 07/21/17 08:59 06/22/17 09:22 Atorvastatin Calcium (Lipitor) 20 mg BEDTIME ORAL 06/20/17 21:00 07/20/17 20:59 06/21/17 20:33 Bupropion HCl (Wellbutrin SR) 150 mg TWICE A DAY ORAL 06/21/17 21:00 07/21/17 20:59 Dextrose (Dextrose 50%) STAT PRN IV Hypoglycemia 06/20/17 20:00 07/20/17 19:59 Dextrose/Sodium Chloride 1,000 ml @ 50 mls/hr Q20H IV 06/20/17 20:30 07/20/17 20:29 06/22/17 12:24 Heparin Sodium (Porcine) (Heparin 5000 units/ml) 5,000 units EVERY 12 HOURS SUBQ 06/20/17 21:00 07/20/17 20:59 06/22/17 09:27 Lidocaine (Lidoderm 5% PATCH) 1 patch DAILY TDERMAL 06/22/17 16:00 07/22/17 15:59 Lorazepam (Ativan 2mg/ml 1ml) 0.5 mg Q4H PRN IV For Anxiety 06/20/17 20:00 06/27/17 19:59 Morphine Sulfate (Morphine Sulfate) 2 mg Q4H PRN IVP For Pain 4-6 06/20/17 20:00 06/27/17 19:59 06/22/17 15:03 Morphine Sulfate (Morphine Sulfate) 4 mg Q4H PRN IVP For Pain 7-10 06/20/17 20:00 06/27/17 19:59 Ondansetron HCl (Zofran) 4 mg Q6H PRN IVP Nausea & Vomiting 06/20/17 20:00 07/20/17 19:59 Polyethylene Glycol (Miralax) 17 gm HSPRN PRN ORAL Constipation 06/20/17 20:00 07/20/17 19:59 Sodium Chloride 1,000 ml @ 75 mls/hr [id number] IVLG 06/22/17 23:55 07/22/17 23:54 Zolpidem Tartrate (Ambien) 5 mg HSPRN PRN ORAL Insomnia 06/20/17 20:00 06/27/17 19:59 06/22/17 04:47 Allergies: Coded Allergies: No Known Allergies (Unverified , 12/28/13) Subjective awake, alert, responsive, NAD, pain upon minimal movement Objective Last Vital Signs Date Time Temp Pulse Resp B/P (MAP) Pulse Ox O2 Delivery O2 Flow Rate FiO2 06/22/17 15:42 98.2 81 20 119/56 100 06/22/17 04:00 Room Air Laboratory Tests Test 06/22/17 08:05 White Blood Count 7.0 K/UL (4.8-10.8) Red Blood Count 3.28 M/UL (4.20-5.40) L Hemoglobin 9.4 G/DL (12.0-16.0) L Hematocrit 28.7 % (37.0-47.0) L Mean Corpuscular Volume 88 FL (80-99) Mean Corpuscular Hemoglobin 28.7 PG (27.0-31.0) Mean Corpuscular Hemoglobin Concent 32.8 G/DL (32.0-36.0) Red Cell Distribution Width 11.8 % (11.6-14.8) Platelet Count 451 K/UL (150-450) H Mean Platelet Volume 6.2 FL (6.5-10.1) L Neutrophils (%) (Auto) 64.5 % (45.0-75.0) Lymphocytes (%) (Auto) 22.4 % (20.0-45.0) Monocytes (%) (Auto) 7.7 % (1.0-10.0) Eosinophils (%) (Auto) 4.3 % (0.0-3.0) H Basophils (%) (Auto) 1.2 % (0.0-2.0) Differential Total Cells Counted 100 Neutrophils % (Manual) 65 % (45-75) Lymphocytes % (Manual) 21 % (20-45) Monocytes % (Manual) 8 % (1-10) Eosinophils % (Manual) 5 % (0-3) H Basophils % (Manual) 1 % (0-2) Band Neutrophils 0 % (0-8) Platelet Estimate Adequate Platelet Morphology Normal Hypochromasia 2+ Anisocytosis 1+ Spherocytes 1+ Erythrocyte Sedimentation Rate 39 MM/HR (0-30) H Reticulocyte Count 2.9 % (0.0-2.0) H Prothrombin Time 10.0 SEC (9.30-11.50) Prothromb Time International Ratio 1.0 (0.9-1.1) Activated Partial Thromboplast Time 24 SEC (23-33) Iron Level 42 ug/dL (50-175) L Total Iron Binding Capacity 219 ug/dL (250-450) L Percent Iron Saturation 19 % (15-50) Unsaturated Iron Binding 177 ug/dL (112-346) Lactate Dehydrogenase 263 U/L (81-234) H Vitamin B12 Level 1105 PG/ML (193-986) H Folate 65.6 NG/ML (8.6-58.9) H Intake and Output 06/22/17 06/23/17 19:00 07:00 Intake Total 830 ml Balance 830 ml Intake Oral 680 ml IV Total 150 ml # Voids 1 Objective General: No acute distress, awake and alert HEENT: NCAT, sclera anicteric, PERRL, EOMI. Neck: Supple, no significant jugular venous distention, Lungs: Good inspiratory effort, clear to auscultation bilaterally, no Wheeze or Rales. Heart: Regular rate and rhythm, normal S1/S2, no murmurs Abdomen: soft, nontender, nondistended. Normoactive bowel sounds. / Rectal: Refused and deferred. Extremities: No Cyanosis , clubbing or edema. Right LE shorter than Left side, lateral rotation. Neuro: A&O x 3, Able to move all extremities Skin: warm, no rashes or lesions Assessment/Plan Assessment/Plan Mechanical fall with Right hip intertrochanteric fracture Hypertension Depression and Anxiety Anemia PLAN: NPO after midnight patient is medically clear for surgery Heparin SQ Full code IVF Pain Medications Thomas Pierson MD Jun 22, 2017 18:01
[2017-06-22 20:00] VITALS: BP 125/62
[2017-06-22] MEDS: Atorvastatin 20mg tab ORAL SCH (20:45)
--- NOTE | 2017-06-22 21:16 | History and Physical Report ---
DATE OF ADMISSION: 06/20/2017 CHIEF COMPLAINT: Right lower extremity pain, unable to ambulate. HISTORY OF PRESENT ILLNESS: This is an 82-year-old very delightful female with past medical history significant for depression, anxiety, hypertension, osteoporosis, who is presented to the hospital after having a fall several days ago. The patient suffered an injury to right hip, was unable to ambulate. Discussed with the patient as an outpatient to come to the hospital, however, she was resisting it. She said that she cannot financially afford it. After further discussion with her and her neighbor, she convinced to come to the emergency room. Shortly after initial evaluation in the emergency, the patient was noted to have the right hip fracture and subsequently was admitted to the hospital for possible surgical intervention. PAST MEDICAL HISTORY/PAST SURGICAL HISTORY: As above. History of hypertension, anxiety, depression, dyslipidemia, and osteoporosis. MEDICATIONS: Medications at home significant for amlodipine 5 mg daily, aspirin 81 mg daily, atorvastatin 20 mg daily, bupropion 150 daily, diazepam 10 mg as needed, ibuprofen 200 mg as needed. ALLERGIES: No known drug allergies. SOCIAL HISTORY: Denies any smoking, alcohol, or drugs. FAMILY HISTORY: Noncontributory. REVIEW OF SYSTEMS: Mostly as above. Denies any dysuria, frequency, hematuria, or hematochezia. Denies any hemoptysis or hematochezia. Denies any suicidal or homicidal ideation. Complained about the difficulty ambulating. Denies any loss of consciousness. Denies any suicidal or homicidal ideation. The patient denies any double vision. Denies any hematuria or hematochezia. PHYSICAL EXAMINATION: VITAL SIGNS: On admission, temperature 97.9, pulse of 98, respirations 18, and blood pressure 116/85. GENERAL: The patient is awake and responsive, in no acute distress. HEAD AND NECK: Pupils are reactive to light. Extraocular movements are intact. NECK: Supple. No JVD. LUNGS: Good air entry. No wheezing or rales. HEART: S1, S2. Regular rhythm. No gallops. ABDOMEN: Soft, nondistended, and nondistended. Positive bowel sounds. EXTREMITIES: No cyanosis, clubbing, or edema. Right lower extremity shorter than left and lateral rotated on the hip and pelvic area, pain over the left hip area. NEUROLOGIC: Cranial nerves II through XII are grossly intact. The patient moves all extremities except the right lower extremity due to the pain and limitation of movement. LABORATORY DATA: On admission, WBC of 8.3, hemoglobin 10.5, hematocrit 33, and platelets 497,000. Sodium 145, potassium 4.3, chloride 108, bicarbonate 27, BUN 24, creatinine 0.9, glucose is 90, calcium is 9.7. Total bilirubin of 0.7. AST of 27, ALT of 22, TSH is 3.58. PT of 10, INR 1.0, PTT of 23. The patient had a CT of the pelvis done, which noted that the acute comminuted right proximal femoral intertrochanteric fracture. X-ray of the knee showed that there is no radiographic evidence of a displaced cortical fracture or dislocation, mild patchy sclerotic involvement of the anterior proximal tibia, insufficiency fracture cannot be excluded. ASSESSMENT: 1. Status post mechanical fall with right acute comminuted right proximal femoral intertrochanteric fracture. 2. Hypertension. 3. Dehydration. 4. Anemia. 5. Dyslipidemia. 6. Osteoporosis. PLAN: Admit the patient to Med/Surg. We will follow up laboratory, pain medication, orthopedic consultation with Dr. Pedro Decker. Follow up with the laboratory in the morning, EKG. Code status is Full Code. DVT prophylaxis. Heparin subcutaneous. Thomas Pierson M.D. DR: BAY JOB#: [id number] CC:
--- NOTE | 2017-06-22 23:31 | Consultation ---
DATE OF CONSULTATION: 06/22/2017 PAIN MANAGEMENT CONSULTATION REFERRING PHYSICIAN: Delvin Man M.D. CONSULTING PHYSICIAN: Gael Vale M.D. PHYSICIAN SURPLUS PROPERTY DISPOSAL AGENT: Rhea Kasper CHIEF COMPLAINT: Right hip pain. HISTORY OF PRESENT ILLNESS: This is an 82-year-old female, who is being seen on the Medical[facility]Surgical floor of [facility] for initial comprehensive pain management consultation. The patient reports that she had a fall due to vacuuming and had been having severe right hip pain, rating at a 10/10, describing the pain as a sharp stabbing pain, increased with movement, and nothing has been helping with her pain except for the morphine intravenous 2 to 4 mg IV every four hours as needed for moderate to severe pain. At this time, the patient has been seen by orthopedic surgeon, scheduled for surgery tomorrow barring no complication and I discussed with the patient about Lidoderm patch to her right hip. She understands and agrees and she has no other complaints. PAST MEDICAL HISTORY: Mitral valve prolapse, hypertension, and migraine headaches in the past. PAST SURGICAL HISTORY: Denies. ALLERGIES: No known drug allergies. MEDICATIONS: Amlodipine, aspirin, atorvastatin, , diazepam, ibuprofen, Fosamax, bupropion, and sumatriptan. SOCIAL HISTORY: Denies smoking, drinking, or drug abuse. REVIEW OF SYSTEMS: Denies rash, fever, chills, sweating, dizziness, drowsiness, or change in her weight. No shortness of breath, chest pain, palpitations, or cough. No nausea, vomiting, diarrhea, or blood in the stool or urine. No bowel or bladder incontinence. She is complaining of right hip pain. PHYSICAL EXAMINATION: GENERAL: Alert, awake, and oriented. VITAL SIGNS: Blood pressure 117/63, heart rate 72, oxygen saturation 97%, respiratory rate 19, and temperature is 98 degrees Fahrenheit. HEENT: PERRLA. NECK: Range of motion is full in all directions. No tenderness to paracervical muscles. No adenopathy. LUNGS: Clear to auscultation bilaterally. HEART: Regular. ABDOMEN: Benign. BACK: Range of motion is full in flexion and extension. No tenderness to paraspinous muscles, trapezius, and rhomboid muscles. EXTREMITIES: Upper extremity range of motion is full in all directions. Motor is intact. No cyanosis. No clubbing. No edema. Sensory is intact. Reflexes are unobtainable. No adenopathy. Lower extremity range of motion is decreased due to the patient's condition with tenderness to palpation of the right hip. No clubbing. No edema. Sensory is intact. Reflexes are unobtainable. No adenopathy. ASSESSMENT AND PLAN: This is an 82-year-old female with right hip pain, right hip fracture. The patient will be continued on morphine 2 to 4 mg IV every 4 hours as needed for moderate to severe pain as well as adding Lidoderm patch to be applied to the right hip at the site of the pain 12 hours on and 12 hours off. The patient is scheduled for surgery tomorrow with Dr. 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 The patient was discussed with Dr. Vale and Dr. Vale concurred. We will follow the patient. Thank you very much for the courtesy of this consultation. Gael Vale M.D. JIMMY Cagle DR: HEIDI JOB#: [id number] CC:
[2017-06-23] VITALS (14 sets, daily range): BP systolic 116–152; BP diastolic 62–75
[2017-06-23] MEDS: Zolpidem 5mg tab ORAL PRN (00:08)
[2017-06-23] MEDS: Morphine Sulfate 2mg/ml Inj IVP PRN ×3 (00:59→09:09)
[2017-06-23 06:28] LABS: BASOPHILS % (AUTO) 1.3 % (0.0-2.0); EOSINOPHILS % (AUTO) 3.6 % (0.0-3.0); LYMPHOCYTES % (AUTO) 20.8 % (20.0-45.0); MEAN CORPUSCULAR HEMOGLOBIN 29.1 PG (27.0-31.0); MEAN CORPUSCULAR HGB CONC 33.3 G/DL (32.0-36.0); MEAN CORPUSCULAR VOLUME 87 FL (80-99); MEAN PLATELET VOLUME 6.2 FL (6.5-10.1); MONOCYTES % (AUTO) 8.1 % (1.0-10.0); NEUTROPHILS % (AUTO) 66.2 % (45.0-75.0); PLATELET COUNT 437 K/UL (150-450); RED BLOOD COUNT 3.15 M/UL (4.20-5.40); RED CELL DISTRIBUTION WIDTH 11.9 % (11.6-14.8); WHITE BLOOD COUNT 7.4 K/UL (4.8-10.8)
[2017-06-23 06:37] LABS: PROTHROMBIN TIME 10.3 SEC (9.30-11.50)
[2017-06-23 06:52] LABS: ALANINE AMINOTRANSFERASE 19 U/L (12-78); ALBUMIN/GLOBULIN RATIO 0.9 (1.0-2.7); ANION GAP 4 mmol/L (5-15); ASPARTATE AMINO TRANSFERASE 20 U/L (15-37); CALCIUM 8.4 MG/DL (8.5-10.1); CARBON DIOXIDE 31 MMOL/L (21-32); CHLORIDE 106 MMOL/L (98-107); CREATININE 0.7 MG/DL (0.55-1.30); MAGNESIUM 1.7 MG/DL (1.8-2.4); PHOSPHORUS 3.2 MG/DL (2.5-4.9); POTASSIUM 3.8 MMOL/L (3.5-5.1); SODIUM 141 MMOL/L (136-145); TOTAL PROTEIN 5.5 G/DL (6.4-8.2)
--- NOTE | 2017-06-23 08:21 | General Progress Note ---
Assessment/Plan Assessment/Plan (1) Right hip pain (2) Right hip Fracture Pt will be continued on Morphine and Lidoderm patch D/w Dr. Vale and he concurred. Subjective Date patient seen: Jun 23, 2017 Time patient seen: 07:15 - am Allergies: Coded Allergies: No Known Allergies (Unverified , 12/28/13) Subjective REVIEW OF SYSTEMS: Denies rash, fever, chills, sweating, dizziness, drowsiness, or change in her weight. No shortness of breath, chest pain, palpitations, or cough. No nausea, vomiting, diarrhea, or blood in the stool or urine. No bowel or bladder incontinence. She is complaining of right hip pain. SUBJECTIVE: Patient is in bed c/o pain and the pain is reduced on the morphine. she is scheduled for surgery later today. Objective Last 24 Hour Vital Signs Date Time Temp Pulse Resp B/P (MAP) Pulse Ox O2 Delivery O2 Flow Rate FiO2 06/23/17 05:56 98.2 06/23/17 04:00 97.8 75 17 131/68 96 06/23/17 00:00 97.6 78 17 133/62 99 06/23/17 00:00 Room Air 06/22/17 20:00 98.4 89 18 125/62 98 06/22/17 15:42 98.2 81 20 119/56 100 06/22/17 11:54 98.0 72 19 117/63 97 06/22/17 09:22 72 124/63 Laboratory Tests 06/23/17 04:45: White Blood Count 7.4, Red Blood Count 3.15L, Hemoglobin 9.2L, Hematocrit 27.5L , Mean Corpuscular Volume 87, Mean Corpuscular Hemoglobin 29.1, Mean Corpuscular Hemoglobin Concent 33.3, Red Cell Distribution Width 11.9, Platelet Count 437, Mean Platelet Volume 6.2L, Neutrophils (%) (Auto) 66.2, Lymphocytes ( %) (Auto) 20.8, Monocytes (%) (Auto) 8.1, Eosinophils (%) (Auto) 3.6H, Basophils (%) (Auto) 1.3, Prothrombin Time 10.3, Prothromb Time International Ratio 1.0, Activated Partial Thromboplast Time 26, Sodium Level 141, Potassium Level 3.8, Chloride Level 106, Carbon Dioxide Level 31, Anion Gap 4L, Blood Urea Nitrogen 10, Creatinine 0.7, Estimat Glomerular Filtration Rate , Glucose Level 93, Calcium Level 8.4L, Phosphorus Level 3.2, Magnesium Level 1.7L, Total Bilirubin 0.5, Aspartate Amino Transf (AST/SGOT) 20, Alanine Aminotransferase ( ALT/SGPT) 19, Alkaline Phosphatase 73, Total Protein 5.5L, Albumin 2.6L, Globulin 2.9, Albumin/Globulin Ratio 0.9L Height (Feet): 5 Height (Inches): 8.00 Weight (Pounds): 119 Objective GENERAL: Alert, awake, and oriented. HEENT: PERRLA. NECK: Range of motion is full in all directions. No tenderness to paracervical muscles. No adenopathy. LUNGS: Clear to auscultation bilaterally. HEART: Regular. ABDOMEN: Benign. BACK: Range of motion is full in flexion and extension. No tenderness to paraspinous muscles, trapezius, and rhomboid muscles. EXTREMITIES: Lower extremity range of motion is decreased due to the patient's condition with tenderness to palpation of the right hip. NEURO: No changes. REBECCA JOHNSON Jun 23, 2017 08:21
[2017-06-23] MEDS: Heparin 5000 units/ml inj SUBQ SCH (09:00)
[2017-06-23] MEDS: BuPROPion SR 150mg tab ORAL SCH ×2 (09:00→18:58)
[2017-06-23] MEDS: D5 1/2NS 1,000 ML IV SCH (09:10)
--- NOTE | 2017-06-23 10:04 | Diagnostic Imaging Report ---
Indication: Pain, trauma Technique: One view of the pelvis, 2 views of both hips Comparison: Pelvic CT dated 06/20/2017, pelvic radiograph 03/23/2012 Findings: There is a comminuted intertrochanteric fracture of the right hip, also demonstrated on prior CT, alignment appearing unchanged. No associated pelvic fracture. No left hip fracture. Joint spaces are preserved. Impression: Positive for right hip intertrochanteric fracture, also previously reported
--- NOTE | 2017-06-23 10:11 | Cardiology Report ---
APPROVED REPORT EXAM: Two-dimensional and M-mode echocardiogram with Doppler and color Doppler. INDICATION Pre-Op M-Mode DIMENSIONS IVSd1.1 (0.7-1.1cm)Left Atrium (MM)3.4 (1.6-4.0cm) LVDd5.0 (3.5-5.6cm)Aortic Root2.2 (2.0-3.7cm) PWd1.0 (0.7-1.1cm)Aortic Cusp Exc.1.7 (1.5-2.0cm) LVDs2.5 (2.5-4.0cm) PWs1.7 cm Normal left ventricular chamber size, systolic function and wall motion. Left ventricular ejection fraction estimated to be 60-65 %. Mild left ventricular hypertrophy. No evidence of pericardial effusion. Mild right atrial enlargement. Mild right ventricular enlargement. Left atrial size chamber sizes is within normal limits. Focal aortic valve sclerosis with adequate cusp excursion. Mildly thickened mitral valve leaflets with normal excursion. Mitral annulus and aortic root calcification. Normal pulmonic valve structure. Normal tricuspid valve structure. IVC at normal size with physiologic collapse. A color flow and spectral Doppler study was performed and revealed: No aortic regurgitation. No mitral regurgitation. Mitral diastolic velocities suggest mild left ventricular dysfunction (Grade 1). Mild tricuspid regurgitation. Tricuspid systolic velocities suggests peak right ventricular systolic pressure of 40 mmHg, consistent with mild pulmonary hypertension. Mild pulmonic regurgitation present.
--- NOTE | 2017-06-23 10:17 | Diagnostic Imaging Report ---
Indication: Cough Technique: One view of the chest Comparison: none Findings: Lungs and pleural spaces are clear. Heart size is normal. Impression: No acute process
--- NOTE | 2017-06-23 11:19 | Internal Med Progress Note ---
Subjective Date of Service: Jun 23, 2017 Physician Name Mosqueda,Alan Attending Physician Thomas Pierson MD Current Medications Medications (Trade) Dose Ordered Sig/Jennifer Route PRN Reason Start Time Stop Time Status Last Admin Dose Admin Acetaminophen (Tylenol) 650 mg Q4H PRN ORAL fever 06/20/17 20:00 07/20/17 19:59 Al Hydroxide/Mg Hydroxide (Mylanta II) 30 ml Q6H PRN ORAL dyspepsia 06/20/17 20:00 07/20/17 19:59 Amlodipine Besylate (Norvasc) 5 mg DAILY ORAL 06/21/17 09:00 07/21/17 08:59 06/23/17 09:08 Atorvastatin Calcium (Lipitor) 20 mg BEDTIME ORAL 06/20/17 21:00 07/20/17 20:59 06/22/17 20:45 Bupropion HCl (Wellbutrin SR) 150 mg TWICE A DAY ORAL 06/21/17 21:00 07/21/17 20:59 Dextrose (Dextrose 50%) STAT PRN IV Hypoglycemia 06/20/17 20:00 07/20/17 19:59 Dextrose/Sodium Chloride 1,000 ml @ 50 mls/hr Q20H IV 06/20/17 20:30 07/20/17 20:29 06/23/17 09:10 Heparin Sodium (Porcine) (Heparin 5000 units/ml) 5,000 units EVERY 12 HOURS SUBQ 06/20/17 21:00 07/20/17 20:59 06/22/17 20:56 Lidocaine (Lidoderm 5% PATCH) 1 patch DAILY TDERMAL 06/22/17 16:00 07/22/17 15:59 06/23/17 09:09 Lorazepam (Ativan 2mg/ml 1ml) 0.5 mg Q4H PRN IV For Anxiety 06/20/17 20:00 06/27/17 19:59 Morphine Sulfate (Morphine Sulfate) 2 mg Q4H PRN IVP For Pain 4-6 06/20/17 20:00 06/27/17 19:59 06/23/17 09:09 Morphine Sulfate (Morphine Sulfate) 4 mg Q4H PRN IVP For Pain 7-10 06/20/17 20:00 06/27/17 19:59 Ondansetron HCl (Zofran) 4 mg Q6H PRN IVP Nausea & Vomiting 06/20/17 20:00 07/20/17 19:59 Polyethylene Glycol (Miralax) 17 gm HSPRN PRN ORAL Constipation 06/20/17 20:00 07/20/17 19:59 Sodium Chloride 1,000 ml @ 75 mls/hr [id number] IVLG 06/22/17 23:55 07/22/17 23:54 06/23/17 00:08 Zolpidem Tartrate (Ambien) 5 mg HSPRN PRN ORAL Insomnia 06/20/17 20:00 06/27/17 19:59 06/23/17 00:08 Allergies: Coded Allergies: No Known Allergies (Unverified , 12/28/13) ROS Limited/Unobtainable: No Constitutional: Reports: no symptoms HEENT: Reports: no symptoms Cardiovascular: Reports: no symptoms Respiratory: Reports: no symptoms Gastrointestinal/Abdominal: Reports: no symptoms Genitourinary: Reports: no symptoms Neurologic/Psychiatric: Reports: no symptoms Subjective 82 YO F admitted with right hip fracture. Await ORIF right intertrochanteric fracture today. Cover for Int Kevyn-Dr Pierson Objective Last Vital Signs Date Time Temp Pulse Resp B/P (MAP) Pulse Ox O2 Delivery O2 Flow Rate FiO2 06/23/17 09:08 75 131/68 06/23/17 08:00 97.0 18 97 06/23/17 00:00 Room Air Laboratory Tests Test 06/23/17 04:45 White Blood Count 7.4 K/UL (4.8-10.8) Red Blood Count 3.15 M/UL (4.20-5.40) L Hemoglobin 9.2 G/DL (12.0-16.0) L Hematocrit 27.5 % (37.0-47.0) L Mean Corpuscular Volume 87 FL (80-99) Mean Corpuscular Hemoglobin 29.1 PG (27.0-31.0) Mean Corpuscular Hemoglobin Concent 33.3 G/DL (32.0-36.0) Red Cell Distribution Width 11.9 % (11.6-14.8) Platelet Count 437 K/UL (150-450) Mean Platelet Volume 6.2 FL (6.5-10.1) L Neutrophils (%) (Auto) 66.2 % (45.0-75.0) Lymphocytes (%) (Auto) 20.8 % (20.0-45.0) Monocytes (%) (Auto) 8.1 % (1.0-10.0) Eosinophils (%) (Auto) 3.6 % (0.0-3.0) H Basophils (%) (Auto) 1.3 % (0.0-2.0) Prothrombin Time 10.3 SEC (9.30-11.50) Prothromb Time International Ratio 1.0 (0.9-1.1) Activated Partial Thromboplast Time 26 SEC (23-33) Sodium Level 141 MMOL/L (136-145) Potassium Level 3.8 MMOL/L (3.5-5.1) Chloride Level 106 MMOL/L (98-107) Carbon Dioxide Level 31 MMOL/L (21-32) Anion Gap 4 mmol/L (5-15) L Blood Urea Nitrogen 10 mg/dL (7-18) Creatinine 0.7 MG/DL (0.55-1.30) Estimat Glomerular Filtration Rate mL/min (>60) Glucose Level 93 MG/DL (74-106) Calcium Level 8.4 MG/DL (8.5-10.1) L Phosphorus Level 3.2 MG/DL (2.5-4.9) Magnesium Level 1.7 MG/DL (1.8-2.4) L Total Bilirubin 0.5 MG/DL (0.2-1.0) Aspartate Amino Transf (AST/SGOT) 20 U/L (15-37) Alanine Aminotransferase (ALT/SGPT) 19 U/L (12-78) Alkaline Phosphatase 73 U/L (46-116) Total Protein 5.5 G/DL (6.4-8.2) L Albumin 2.6 G/DL (3.4-5.0) L Globulin 2.9 g/dL Albumin/Globulin Ratio 0.9 (1.0-2.7) L Intake and Output 06/23/17 06/24/17 19:00 07:00 # Voids 2 Objective PHYSICAL EXAMINATION: VITAL SIGNS: On admission, temperature 97.9, pulse of 98, respirations 18, and blood pressure 116/85. GENERAL: The patient is awake and responsive, in no acute distress. HEAD AND NECK: Pupils are reactive to light. Extraocular movements are intact. NECK: Supple. No JVD. LUNGS: Good air entry. No wheezing or rales. HEART: S1, S2. Regular rhythm. No gallops. ABDOMEN: Soft, nondistended, and nondistended. Positive bowel sounds. EXTREMITIES: No cyanosis, clubbing, or edema. Right lower extremity shorter than left and lateral rotated on the hip and pelvic area, pain over the left hip area. NEUROLOGIC: Cranial nerves II through XII are grossly intact. The patient moves all extremities except the right lower extremity due to the pain and limitation of movement. Assessment/Plan Assessment/Plan Assessment/Plan Mechanical fall with Right hip intertrochanteric fracture Hypertension Depression and Anxiety Anemia PLAN: NPO after midnight patient is medically clear for surgery Heparin SQ Full code IVF Pain Medications ALAN MOSQUEDA Jun 23, 2017 11:18
[2017-06-23] MEDS ORDERED: Bacitracin 50000 Units Vial ONE (13:40)
[2017-06-23] MEDS ORDERED: NeoSporin Gu Irrig 1ml Amp IRRIG ONE (13:40)
[2017-06-23] MEDS ORDERED: Ropivacaine 5mg/ml Vial 30ml INJ ONE (13:40)
[2017-06-23] MEDS ORDERED: Bupivacaine 0.5% Inj 30 ml vial INJ ONE (13:40)
[2017-06-23] MEDS ORDERED: Propofol 200mg/20ml IV ONE (13:41)
[2017-06-23 13:57] LABS: OTHERS PATHOLOGIST COMMENT
--- NOTE | 2017-06-23 15:05 | Pulmonology Progress Note ---
Assessment/Plan Problems: (1) Hip fracture (2) Depression (3) Mitral valve prolapse Assessment/Plan pain controlled pain is controlled dvt prophylaxis Echodone for surgery today Subjective ROS Limited/Unobtainable: No Interval Events: going for surgery Allergies: Coded Allergies: No Known Allergies (Unverified , 12/28/13) Objective Last 24 Hour Vital Signs Date Time Temp Pulse Resp B/P (MAP) Pulse Ox O2 Delivery O2 Flow Rate FiO2 06/23/17 12:00 97.0 87 17 128/67 96 06/23/17 09:08 75 131/68 06/23/17 08:00 97.0 81 18 125/71 97 06/23/17 05:56 98.2 06/23/17 04:00 97.8 75 17 131/68 96 06/23/17 00:00 97.6 78 17 133/62 99 06/23/17 00:00 Room Air 06/22/17 20:00 98.4 89 18 125/62 98 06/22/17 15:42 98.2 81 20 119/56 100 Intake and Output 06/23/17 06/24/17 19:00 07:00 # Voids 3 Objective General Appearance: WD/WN Lines, tubes and drains: peripheral, HEENT: normocephalic, atraumatic Neck: non-tender, normal alignment Respiratory/Chest: chest wall non-tender, lungs clear, normal breath sounds Breasts: no masses Cardiovascular/Chest: normal rate Abdomen: normal bowel sounds Extremities: normal range of motion Laboratory Tests 06/23/17 04:45: White Blood Count 7.4, Red Blood Count 3.15L, Hemoglobin 9.2L, Hematocrit 27.5L , Mean Corpuscular Volume 87, Mean Corpuscular Hemoglobin 29.1, Mean Corpuscular Hemoglobin Concent 33.3, Red Cell Distribution Width 11.9, Platelet Count 437, Mean Platelet Volume 6.2L, Neutrophils (%) (Auto) 66.2, Lymphocytes ( %) (Auto) 20.8, Monocytes (%) (Auto) 8.1, Eosinophils (%) (Auto) 3.6H, Basophils (%) (Auto) 1.3, Prothrombin Time 10.3, Prothromb Time International Ratio 1.0, Activated Partial Thromboplast Time 26, Sodium Level 141, Potassium Level 3.8, Chloride Level 106, Carbon Dioxide Level 31, Anion Gap 4L, Blood Urea Nitrogen 10, Creatinine 0.7, Estimat Glomerular Filtration Rate , Glucose Level 93, Calcium Level 8.4L, Phosphorus Level 3.2, Magnesium Level 1.7L, Total Bilirubin 0.5, Aspartate Amino Transf (AST/SGOT) 20, Alanine Aminotransferase ( ALT/SGPT) 19, Alkaline Phosphatase 73, Total Protein 5.5L, Albumin 2.6L, Globulin 2.9, Albumin/Globulin Ratio 0.9L Current Medications Medications (Trade) Dose Ordered Sig/Jennifer Route PRN Reason Start Time Stop Time Status Last Admin Dose Admin Acetaminophen (Tylenol) 650 mg Q4H PRN ORAL fever 06/20/17 20:00 07/20/17 19:59 Al Hydroxide/Mg Hydroxide (Mylanta II) 30 ml Q6H PRN ORAL dyspepsia 06/20/17 20:00 07/20/17 19:59 Amlodipine Besylate (Norvasc) 5 mg DAILY ORAL 06/21/17 09:00 07/21/17 08:59 06/23/17 09:08 Atorvastatin Calcium (Lipitor) 20 mg BEDTIME ORAL 06/20/17 21:00 07/20/17 20:59 06/22/17 20:45 Bupropion HCl (Wellbutrin SR) 150 mg TWICE A DAY ORAL 06/21/17 21:00 07/21/17 20:59 Dextrose (Dextrose 50%) STAT PRN IV Hypoglycemia 06/20/17 20:00 07/20/17 19:59 Dextrose/Sodium Chloride 1,000 ml @ 50 mls/hr Q20H IV 06/20/17 20:30 07/20/17 20:29 06/23/17 09:10 Heparin Sodium (Porcine) (Heparin 5000 units/ml) 5,000 units EVERY 12 HOURS SUBQ 06/20/17 21:00 07/20/17 20:59 06/22/17 20:56 Lidocaine (Lidoderm 5% PATCH) 1 patch DAILY TDERMAL 06/22/17 16:00 07/22/17 15:59 06/23/17 09:09 Lorazepam (Ativan 2mg/ml 1ml) 0.5 mg Q4H PRN IV For Anxiety 06/20/17 20:00 06/27/17 19:59 Morphine Sulfate (Morphine Sulfate) 2 mg Q4H PRN IVP For Pain 4-6 06/20/17 20:00 06/27/17 19:59 06/23/17 09:09 Morphine Sulfate (Morphine Sulfate) 4 mg Q4H PRN IVP For Pain 7-10 06/20/17 20:00 06/27/17 19:59 Ondansetron HCl (Zofran) 4 mg Q6H PRN IVP Nausea & Vomiting 06/20/17 20:00 07/20/17 19:59 Polyethylene Glycol (Miralax) 17 gm HSPRN PRN ORAL Constipation 06/20/17 20:00 07/20/17 19:59 Sodium Chloride 1,000 ml @ 75 mls/hr [id number] IVLG 06/22/17 23:55 07/22/17 23:54 06/23/17 00:08 Zolpidem Tartrate (Ambien) 5 mg HSPRN PRN ORAL Insomnia 06/20/17 20:00 06/27/17 19:59 06/23/17 00:08 MINDI WALDEN Jun 23, 2017 15:05
[2017-06-23] MEDS ORDERED: LR 1000ml 1,000 ML IVLG SCH (15:45)
[2017-06-23] MEDS ORDERED: DiphenhydrAMINE 50mg/ml Inj IVP PRN (15:45)
--- NOTE | 2017-06-23 15:50 | Anethesia Preoperative Eval ---
Anesthesia Pre-op PMH/ROS General Date of Evaluation: Jun 23, 2017 Time of Evaluation: 15:25 Anesthesiologist: Alfonso ASA Score: ASA 2 Mallampati Score Class I : Soft palate, uvula, fauces, pillars visible Class II: Soft palate, uvula, fauces visible Class III: Soft palate, base of uvula visible Class IV: Only hard plate visible Mallampati Classification: Class II Surgeon: Brianne Diagnosis: Right greater trochanteric fracture Surgical Procedure: ORIF right femur Allergies: Coded Allergies: No Known Allergies (Unverified , 12/28/13) Past Medical History Cardiovascular: Reports: HTN, Denies: CAD, [place], valve dz, arrhythmia, other Pulmonary: Denies: asthma, COPD, EARL, other Gastrointestinal/Genitourinary: Denies: GERD, CRI, ESRD, other Neurologic/Psychiatric: Denies: dementia, CVA, depression/anxiety, TIA, other Endocrine: Denies: DM, hypothyroidism, steroids, other HEENT: Denies: cataract (L), cataract (R), glaucoma, [place] (L), [place] (R), other Hematology/Immune: Reports: anemia Musculoskeletal/Integumentary: Denies: OA, RA, DJD, DDD, edema, other PMH Narrative: HTN, MVP PSxH Narrative: Foot surgery Anesthesia Pre-op Phys. Exam Physician Exam Last Vital Signs Date Time Temp Pulse Resp B/P (MAP) Pulse Ox O2 Delivery O2 Flow Rate FiO2 06/23/17 12:00 97.0 87 17 128/67 96 06/23/17 00:00 Room Air Constitutional: NAD Neurologic: CN 2-12 intact Cardiovascular: RRR, no M/R/G Respiratory: CTA Gastrointestinal: S/NT/ND Airway Exam Mallampati Score: Class II MO: full ROM: full Teeth: missing Dentures: upper Anesthesia Pre-op A/P Labs Hematology Test 06/23/17 04:45 White Blood Count 7.4 K/UL (4.8-10.8) Red Blood Count 3.15 M/UL (4.20-5.40) L Hemoglobin 9.2 G/DL (12.0-16.0) L Hematocrit 27.5 % (37.0-47.0) L Mean Corpuscular Volume 87 FL (80-99) Mean Corpuscular Hemoglobin 29.1 PG (27.0-31.0) Mean Corpuscular Hemoglobin Concent 33.3 G/DL (32.0-36.0) Red Cell Distribution Width 11.9 % (11.6-14.8) Platelet Count 437 K/UL (150-450) Mean Platelet Volume 6.2 FL (6.5-10.1) L Neutrophils (%) (Auto) 66.2 % (45.0-75.0) Lymphocytes (%) (Auto) 20.8 % (20.0-45.0) Monocytes (%) (Auto) 8.1 % (1.0-10.0) Eosinophils (%) (Auto) 3.6 % (0.0-3.0) H Basophils (%) (Auto) 1.3 % (0.0-2.0) Coagulation Test 06/23/17 04:45 Prothrombin Time 10.3 SEC (9.30-11.50) Prothromb Time International Ratio 1.0 (0.9-1.1) Activated Partial Thromboplast Time 26 SEC (23-33) Chemistry Test 06/23/17 04:45 Sodium Level 141 MMOL/L (136-145) Potassium Level 3.8 MMOL/L (3.5-5.1) Chloride Level 106 MMOL/L (98-107) Carbon Dioxide Level 31 MMOL/L (21-32) Anion Gap 4 mmol/L (5-15) L Blood Urea Nitrogen 10 mg/dL (7-18) Creatinine 0.7 MG/DL (0.55-1.30) Estimat Glomerular Filtration Rate mL/min (>60) Glucose Level 93 MG/DL (74-106) Calcium Level 8.4 MG/DL (8.5-10.1) L Phosphorus Level 3.2 MG/DL (2.5-4.9) Magnesium Level 1.7 MG/DL (1.8-2.4) L Total Bilirubin 0.5 MG/DL (0.2-1.0) Aspartate Amino Transf (AST/SGOT) 20 U/L (15-37) Alanine Aminotransferase (ALT/SGPT) 19 U/L (12-78) Alkaline Phosphatase 73 U/L (46-116) Total Protein 5.5 G/DL (6.4-8.2) L Albumin 2.6 G/DL (3.4-5.0) L Globulin 2.9 g/dL Albumin/Globulin Ratio 0.9 (1.0-2.7) L Studies Pre-op Studies: EKG - SR, ?IRRRB, echo - EF 60-65% Risk Assessment & Plan Assessment: 82 yo female with h/o HTN, anemia and MVP here for ORIF right femur Plan: GA, LMA Status Change Before Surgery: No Pre-Antibiotics Drug: Ancef Given Within 1 Hr of Incision: Yes Time Given: 16:15 EUGENE BELL M.D. Jun 23, 2017 15:50
--- NOTE | 2017-06-23 15:50 | Immediate Post-Op Evaluation ---
Immediate Post-Op Evalulation Immediate Post-Op Evalulation Procedure: ORIF right femur Date of Evaluation: Jun 23, 2017 Time of Evaluation: 17:40 IV Fluids: 700 Estimated Blood Loss: 50 Urinary Output: 400 Blood Pressure Systolic: 152 Blood Pressure Diastolic: 75 Pulse Rate: 89 Respiratory Rate: 22 O2 Sat by Pulse Oximetry: 100 Temperature (Fahrenheit): 98.7 Pain Score (1-10): 0 Nausea: No Vomiting: No Complications No complication Patient Status: awake, patent, none Hydration Status: adequate Drug: Ancef Given Within 1 Hr of Incision: Yes Time Given: 16:15 EUGENE BELL M.D. Jun 23, 2017 15:50
[2017-06-23] MEDS ORDERED: NS Irrig 1000ml ONE (16:00)
[2017-06-23] MEDS ORDERED: Sterile Water Irrig 1000ml IRRIG ONE (16:00)
[2017-06-23] MEDS ORDERED: LR 1000ml ONE (16:00)
[2017-06-23] MEDS ORDERED: Morphine Sulfate 2mg/ml Inj ONE (16:00)
[2017-06-23] MEDS ORDERED: fentaNYL 100 mcg/2 mL IV ONE (16:00)
[2017-06-23] MEDS ORDERED: Midazolam 2mg/2ml Inj ONE (16:00)
[2017-06-23] MEDS ORDERED: D5 1/2NS 1000ml IV ONE (16:34)
--- NOTE | 2017-06-23 16:56 | Pre-Procedure Note/Attestation ---
Pre-Procedure Note/Attestation Complete Prior to Procedure Planned Procedure: right Procedure Narrative: rt hip orif Indications for Procedure Pre-Operative Diagnosis: rt hip fx Attestation I attest that I discussed the nature of the procedure; its benefits; risks and complications; and alternatives (and the risks and benefits of such alternatives ), prior to the procedure, with the patient (or the patient's legal parts sales representative). I attest that, if there was a reasonable possibility of needing a blood transfusion, the patient (or the patient's legal parts sales representative) was given the [facility] standardized written summary, pursuant to the Jose Roopa Blood Safety Act ([place] Health and Safety Code # 1645, as amended). I attest that I re-evaluated the patient just prior to the surgery and that there has been no change in the patient's H&P, except as documented below:none RITA MERINO Jun 23, 2017 16:56
--- NOTE | 2017-06-23 17:19 | Brief Operative Note ---
Immediate Post Operative Note Operative Note Chief Complaint: rt hip pain Pre-op Diagnosis: rt hip fx Procedure: rt hip orif Post-op Diagnosis: same as pre-op Findings: consistent w/pre-op dx studies Surgeon: md clive Chief Airline Radio Operator: kellee dangelo Anesthesiologist: md momo Anesthesia: general Specimen: none Complications: none Condition: stable Fluids: ns Estimated Blood Loss: minimal Drains: none Implant(s) used?: Yes - JARRETT Gibson Jun 23, 2017 17:19
[2017-06-23] MEDS: Hydromorphone 0.5mg/0.5ml inj IVP PRN ×2 (17:41→17:59)
[2017-06-23] MEDS: LORazepam Inj 2mg/ml 1ml IV PRN ×2 (17:42→18:01)
[2017-06-23] MEDS ORDERED: Milk of Magnesia 30ml Ud ORAL PRN (20:00)
[2017-06-23] MEDS ORDERED: HYDROmorphone 1mg/ml Carpuject SUBQ PRN (20:00)
[2017-06-23] MEDS: Atorvastatin 20mg tab ORAL SCH (20:18)
[2017-06-23] MEDS: D5 1/2NS w/KCl 20mEq 1,000 ML IV SCH (21:09)
[2017-06-24] MEDS: ceFAZolin sod 2 GM in D5W 110 ML IV SCH ×2 (00:07→08:00)
[2017-06-24] MEDS: Norco 7.5mg/325mg tab ORAL PRN ×2 (00:08→21:11)
[2017-06-24 00:40] VITALS: BP 109/67
--- NOTE | 2017-06-24 04:00 | Operative Note - Dictated ---
DATE OF OPERATION: 06/20/2017 FACILITY: [facility]. PREOPERATIVE DIAGNOSIS: Right hip intertrochanteric fracture with comminution. POSTOPERATIVE DIAGNOSIS: Right hip intertrochanteric fracture with comminution. PROCEDURE: Right hip open reduction and internal fixation with a short gamma 125-degree nail with 85 mm lag screw. SURGEON: Pedro Decker M.D. MEAT MOLDER: Maria T Doan PA-C. ANESTHESIOLOGIST: Jose Hamilton M.D. ANESTHESIA: LMA anesthesia. ESTIMATED BLOOD LOSS: Less than 50 mL. COMPLICATIONS: None. BRIEF HISTORY: The patient is a pleasant 82-year-old female, who sustained a mechanical fall and landed on her right hip. She had pain about the right hip. She was brought in to the [facility]. CT scan was obtained. CT scan showed a right intertrochanteric fracture. After full discussion of the risks and benefits of the surgery and complications associated with it including infection, bleeding, neurovascular complication, possibility of malunion, possibility of nonunion, possibility of need for further surgery, possibility of DVT or PE and other complication, and inability to walk and limp, and need for assistive devices have been outlined, she opted for surgical treatment as described above. OPERATIVE PROCEDURE: The patient was brought to the operating table and was placed supine. General endotracheal anesthesia was induced. The right hip was prepped and draped in usual sterile fashion. The right hip was placed in traction and the left leg was placed in a well-leg ceballos. All pressure points were well padded. The image intensifier was brought in and the fracture reduction was checked. Using traction, this was reduced near anatomically. At this point, the right leg was prepped and draped in usual sterile fashion. A standard incision was made about 2 cm proximal to the greater trochanter. Incision was taken through the gluteal fascia. The trochanter could be palpated and at this point, a guidewire was placed through the greater trochanter into the intramedullary canal. The position was checked on AP and lateral, and appeared to be acceptable. Proximal reaming was performed and at this point, a short 125-degree gamma nail was then placed in intramedullarly without any complication. The position was checked on AP and lateral, and appeared to be excellent. At this point, using the guide, a guidewire was placed through the lateral cortex of the femur through the nail and into the neck and head of the femur. The position was slightly posterior initially, subsequently this was readjusted and it was in the center on the lateral view and slightly inferior on the AP view. This appeared to be in acceptable position. Measurements were made and 85-mm screw appeared to be the right screw. Therefore, 85 mm reaming was performed and an 85-mm lag screw was placed in without any complication. A locking screw was then used to lock up the lag screw on the nail and was back up by half of turn to allow compression. Position of the screw and nail was then checked on AP and lateral and appeared to be perfect anatomical on AP and lateral. The fracture was reduced anatomically. At this point, all guides were removed and wounds were thoroughly irrigated using copious amount of fluid. The guidewire was removed as well. The final x-rays were obtained and the fracture was reduced anatomically and the hardware was in excellent position. At this point, the gluteal fascia was closed using 2-0 Vicryl suture. Subcutaneous tissue was closed using 2-0 Vicryl suture. Skin was closed using 3-0 Monocryl suture. Sterile dressing was applied and the patient tolerated the procedure well without any complications and was taken to recovery room in stable condition. All lap counts and instrument counts were correct. Pedro Decker M.D. DR: Breanne JOB#: [id number] CC: MARY
[2017-06-24 04:45] VITALS: BP 100/56
[2017-06-24 06:34] LABS: BASOPHILS % (AUTO) 0.7 % (0.0-2.0); EOSINOPHILS % (AUTO) 2.4 % (0.0-3.0); LYMPHOCYTES % (AUTO) 13.7 % (20.0-45.0); MEAN CORPUSCULAR HEMOGLOBIN 28.2 PG (27.0-31.0); MEAN CORPUSCULAR HGB CONC 32.3 G/DL (32.0-36.0); MEAN CORPUSCULAR VOLUME 87 FL (80-99); MEAN PLATELET VOLUME 6.3 FL (6.5-10.1); MONOCYTES % (AUTO) 6.1 % (1.0-10.0); NEUTROPHILS % (AUTO) 77.1 % (45.0-75.0); PLATELET COUNT 435 K/UL (150-450); RED BLOOD COUNT 3.24 M/UL (4.20-5.40); RED CELL DISTRIBUTION WIDTH 11.9 % (11.6-14.8); WHITE BLOOD COUNT 8.6 K/UL (4.8-10.8)
[2017-06-24 06:59] LABS: ANION GAP 3 mmol/L (5-15); CALCIUM 8.4 MG/DL (8.5-10.1); CARBON DIOXIDE 31 MMOL/L (21-32); CHLORIDE 103 MMOL/L (98-107); CREATININE 0.8 MG/DL (0.55-1.30); POTASSIUM 4.7 MMOL/L (3.5-5.1); SODIUM 137 MMOL/L (136-145)
[2017-06-24 08:00] VITALS: BP 99/68
--- NOTE | 2017-06-24 08:33 | General Progress Note ---
Assessment/Plan Assessment/Plan (1) Right hip pain (2) Right hip Fracture (3) S/p ORIF of right hip Pt will be continued on Morphine, [place] and Lidoderm patch D/w Dr. Vale and he concurred. Subjective Date patient seen: Jun 24, 2017 Time patient seen: 07:15 - am Allergies: Coded Allergies: No Known Allergies (Unverified , 12/28/13) Subjective REVIEW OF SYSTEMS: Denies rash, fever, chills, sweating, dizziness, drowsiness, or change in her weight. No shortness of breath, chest pain, palpitations, or cough. No nausea, vomiting, diarrhea, or blood in the stool or urine. No bowel or bladder incontinence. She is complaining of right hip pain. SUBJECTIVE: Patient is s/p ORIF and report that her pain has been severe however tolerated well on the Morphine and Lidoderm patch. She was started on norco 7.5/325mg PO 1 tab Q4H PRN moderate pain Objective Last 24 Hour Vital Signs Date Time Temp Pulse Resp B/P (MAP) Pulse Ox O2 Delivery O2 Flow Rate FiO2 06/24/17 08:27 88 99/46 06/24/17 08:00 98.1 88 19 99/68 96 Room Air 06/24/17 04:45 97.7 84 20 100/56 99 06/24/17 00:40 97.9 98 19 109/67 100 06/23/17 20:00 97.6 87 18 116/70 99 06/23/17 19:00 96.0 83 18 127/73 97 06/23/17 18:35 98.6 06/23/17 18:30 98.6 79 15 138/73 100 Nasal Cannula 3.0 06/23/17 18:20 81 14 139/68 100 Nasal Cannula 3.0 06/23/17 18:10 76 15 143/66 100 Nasal Cannula 3.0 06/23/17 17:59 79 19 143/71 100 Nasal Cannula 3.0 06/23/17 17:50 78 17 141/69 100 Nasal Cannula 3.0 06/23/17 17:40 84 18 147/75 100 Nasal Cannula 3.0 06/23/17 17:35 87 16 145/69 100 Simple Mask 6.0 06/23/17 17:35 89 22 100 06/23/17 17:30 98.6 88 14 152/75 100 Simple Mask 6.0 06/23/17 12:00 97.0 87 17 128/67 96 06/23/17 09:08 75 131/68 Laboratory Tests 06/24/17 05:20: White Blood Count 8.6, Red Blood Count 3.24L, Hemoglobin 9.1L, Hematocrit 28.2L , Mean Corpuscular Volume 87, Mean Corpuscular Hemoglobin 28.2, Mean Corpuscular Hemoglobin Concent 32.3, Red Cell Distribution Width 11.9, Platelet Count 435, Mean Platelet Volume 6.3L, Neutrophils (%) (Auto) 77.1H, Lymphocytes (%) (Auto) 13.7L, Monocytes (%) (Auto) 6.1, Eosinophils (%) (Auto) 2.4, Basophils (%) (Auto) 0.7, Sodium Level 137, Potassium Level 4.7, Chloride Level 103, Carbon Dioxide Level 31, Anion Gap 3L, Blood Urea Nitrogen 11, Creatinine 0.8, Estimat Glomerular Filtration Rate , Glucose Level 126H, Calcium Level 8.4L Height (Feet): 5 Height (Inches): 8.00 Weight (Pounds): 119 Objective GENERAL: Alert, awake, and oriented. HEENT: PERRLA. NECK: Range of motion is full in all directions. No tenderness to paracervical muscles. No adenopathy. LUNGS: Clear to auscultation bilaterally. HEART: Regular. ABDOMEN: Benign. BACK: Range of motion is full in flexion and extension. No tenderness to paraspinous muscles, trapezius, and rhomboid muscles. EXTREMITIES: Lower extremity range of motion is decreased due to the patient's condition with tenderness to palpation of the right hip. Bandages applied. NEURO: No changes. REBECCA JOHNSON Jun 24, 2017 08:33
[2017-06-24] MEDS ORDERED: ceFAZolin 2gm/50ml Premix 50 ML IV ONE (08:45)
[2017-06-24] MEDS: BuPROPion SR 150mg tab ORAL SCH ×2 (09:00→17:49)
[2017-06-24] MEDS: Docusate 100mg cap ORAL SCH ×3 (09:06→17:50)
[2017-06-24] MEDS: Enoxaparin 30mg Inj SUBQ SCH (09:10)
[2017-06-24] MEDS: Morphine Sulfate 2mg/ml Inj IVP PRN ×3 (09:11→17:51)
--- NOTE | 2017-06-24 09:22 | 48 Hour Post Anesthesia Eval ---
Post Anesthesia Evaluation Procedure: ORIF right femur Date of Evaluation: Jun 24, 2017 Time of Evaluation: 09:40 Blood Pressure Systolic: 99 0: 68 Pulse Rate: 88 Respiratory Rate: 16 Temperature (Fahrenheit): 98.1 O2 Sat by Pulse Oximetry: 96 Airway: patent Nausea: No Vomiting: No Pain Intensity: 3 If pain is > 6 Comment: Pain increased with ambulation. Instructed her to ask for meds prior to PT Hydration Status: adequate Cardiopulmonary Status: Stable Mental Status/LOC: patient returned to baseline Follow-up Care/Observations: As per surgery Post-Anesthesia Complications: No anesthetic complication Follow-up care needed: N/A EUGENE BELL M.D. Jun 24, 2017 09:22
[2017-06-24] MEDS: D5 1/2NS w/KCl 20mEq 1,000 ML IV SCH ×3 (09:50→21:11)
[2017-06-24 12:00] VITALS: BP 116/61
--- NOTE | 2017-06-24 14:18 | Physician Query ---
PLEASE COMPLETE DOCUMENT BEFORE SIGNING Dear Dr. Thomas Pierson Date: [employer] Name: Jelena SaravialandoDORA [employer] Phone No.: [phone] Exercise your independent professional judgment when responding to the query. Questions asked do not imply a particular answer is desired or expected. We greatly appreciate your clarification on this issue. "Shortly after initial evaluation in the emergency, the patient was noted to have the right hip fracture and subsequently was admitted to the hospital for possible surgical intervention" documented in the H/P of Dr. Thomas Pierson CLINICAL DOCUMENTATION STATES: Right hip intertrochanteric fracture with comminution. S/P Right hip open reduction and internal fixation with a short gamma 125-degree nail with 85 mm lag screw. BMI=18.1 Albumin:2.8, 2.6 CLINICAL FINDINGS SHOW: Please select the most appropriate option: [] Mild Protein/Calorie Malnutrition [] Moderate Protein/Calorie Malnutrition >Serum albumin 2.8 to 3.4 g/dL or Pre-albumin 5 to 7 mg/dl (3) >Inadequate nutritional intake (1, 2, 3, 4) >NPO > 5 days >Weight loss: 5% in 1 month or 7.5% in 3 months or 10% in 6 months (1,3,4) >BMI 16 to 18.4 or Weight <90 of ideal body weight (1,2,3,4) [ ] Severe Protein Calorie Malnutrition >Serum Albumin < 2.8 g/dL (1,2) >Lymphocytes < 1500/uL (2) >Inadequate nutritional intake3 , high stress e.g. major trauma, sepsis, pancreatitis, rocha etc. >Decubitus ulcers (1,2) , skin breakdown(2), easy hair pluckability >Weight <80% standard for height (2) >Triceps skin fold <3 mm2 >Mid-arm muscle circumference <25 cm2 >Creatinine-height index <60% standard (2) _ [] Hypoalbuminemia [] Emancipated w/ Malnutrition [] Kwashiorkor (rare in [place]) [] Marasmus [] Other [] Unable to determine [] Not Applicable Condition Present on Admission: [] Yes [] No [ ] Unable to determine Please also document in your Progress Notes and/or Discharge Summary and indicate if the condition was present on admission. Thomas Pierson MD Date/Time M.Miller References: 1 [facility] Board. (2007). Nutritional support strategy for protein -energy malnutrition in the elderly. Clinical Practice Guidelines. 2 Anna Marie Reaves (2011). Malnutrition and nutritional assessment. In Matt Ortiz (18th Ed.) Brooks's Principle of Internal Medicine ([id number]) [place], [place]: [facility] 3 Sana Perez. (2001). Clinical Nutrition: Protein-energy malnutrition in the inpatient. [employer] Journal, vol. 165 no. 10 (pp. 5255- 7265 ). 4 Campos Rhodes (2012). Geriactric Nutrition: Nutritional Issues in Older Adults. [email or web address]
[2017-06-24 15:44] VITALS: BP 124/69
--- NOTE | 2017-06-24 17:23 | Pulmonology Progress Note ---
Assessment/Plan Problems: (1) Hip fracture (2) Depression (3) Mitral valve prolapse Assessment/Plan pain controlled pain is controlled dvt prophylaxis pt.ot Subjective ROS Limited/Unobtainable: No Interval Events: very anxious about Physical therapy Allergies: Coded Allergies: No Known Allergies (Unverified , 12/28/13) Objective Last 24 Hour Vital Signs Date Time Temp Pulse Resp B/P (MAP) Pulse Ox O2 Delivery O2 Flow Rate FiO2 06/24/17 15:44 98.3 78 20 124/69 98 06/24/17 12:00 98.6 88 19 116/61 96 Room Air 06/24/17 09:41 98.1 06/24/17 09:22 88 16 96 06/24/17 08:27 88 99/46 06/24/17 08:00 98.1 88 19 99/68 96 Room Air 06/24/17 04:45 97.7 84 20 100/56 99 06/24/17 00:40 97.9 98 19 109/67 100 06/23/17 20:00 97.6 87 18 116/70 99 06/23/17 19:00 96.0 83 18 127/73 97 06/23/17 18:35 98.6 06/23/17 18:30 98.6 79 15 138/73 100 Nasal Cannula 3.0 06/23/17 18:20 81 14 139/68 100 Nasal Cannula 3.0 06/23/17 18:10 76 15 143/66 100 Nasal Cannula 3.0 06/23/17 17:59 79 19 143/71 100 Nasal Cannula 3.0 06/23/17 17:50 78 17 141/69 100 Nasal Cannula 3.0 06/23/17 17:40 84 18 147/75 100 Nasal Cannula 3.0 06/23/17 17:35 87 16 145/69 100 Simple Mask 6.0 06/23/17 17:35 89 22 100 06/23/17 17:30 98.6 88 14 152/75 100 Simple Mask 6.0 Intake and Output 06/24/17 06/25/17 19:00 07:00 Intake Total 420 ml Output Total 250 ml Balance 170 ml Intake Oral 120 ml IV Total 300 ml Output Urine Total 250 ml Objective General Appearance: WD/WN Lines, tubes and drains: peripheral, HEENT: normocephalic, atraumatic Neck: non-tender, normal alignment Respiratory/Chest: chest wall non-tender, lungs clear, normal breath sounds Breasts: no masses Cardiovascular/Chest: normal rate Abdomen: normal bowel sounds Extremities: normal range of motion Laboratory Tests 06/24/17 05:20: White Blood Count 8.6, Red Blood Count 3.24L, Hemoglobin 9.1L, Hematocrit 28.2L , Mean Corpuscular Volume 87, Mean Corpuscular Hemoglobin 28.2, Mean Corpuscular Hemoglobin Concent 32.3, Red Cell Distribution Width 11.9, Platelet Count 435, Mean Platelet Volume 6.3L, Neutrophils (%) (Auto) 77.1H, Lymphocytes (%) (Auto) 13.7L, Monocytes (%) (Auto) 6.1, Eosinophils (%) (Auto) 2.4, Basophils (%) (Auto) 0.7, Sodium Level 137, Potassium Level 4.7, Chloride Level 103, Carbon Dioxide Level 31, Anion Gap 3L, Blood Urea Nitrogen 11, Creatinine 0.8, Estimat Glomerular Filtration Rate , Glucose Level 126H, Calcium Level 8.4L Current Medications Medications (Trade) Dose Ordered Sig/Jennifer Route PRN Reason Start Time Stop Time Status Last Admin Dose Admin Acetaminophen (Tylenol) 650 mg Q4H PRN ORAL Mild Pain (Pain Scale 1-3) 06/23/17 17:00 07/23/17 16:59 Acetaminophen (Tylenol) 650 mg Q4H PRN ORAL fever 06/20/17 20:00 07/20/17 19:59 Acetaminophen/ Hydrocodone Bitart ([place] 7.5/325) 1 ea Q4H PRN ORAL Moderate Pain (Pain Scale 4-6) 06/23/17 20:00 06/30/17 19:59 06/24/17 00:08 Al Hydroxide/Mg Hydroxide (Mylanta II) 30 ml Q6H PRN ORAL dyspepsia 06/20/17 20:00 07/20/17 19:59 Amlodipine Besylate (Norvasc) 5 mg DAILY ORAL 06/21/17 09:00 07/21/17 08:59 06/23/17 09:08 Atorvastatin Calcium (Lipitor) 20 mg BEDTIME ORAL 06/20/17 21:00 07/20/17 20:59 06/23/17 20:18 Bupropion HCl (Wellbutrin SR) 150 mg TWICE A DAY ORAL 06/21/17 21:00 07/21/17 20:59 Dextrose (Dextrose 50%) STAT PRN IV Hypoglycemia 06/20/17 20:00 07/20/17 19:59 Dextrose/ Electrolytes 1,000 ml @ 75 mls/hr [id number] IV 06/23/17 20:30 07/23/17 20:29 06/24/17 11:20 Docusate Sodium (Colace) 100 mg THREE TIMES A DAY ORAL 06/24/17 09:00 07/24/17 08:59 06/24/17 12:59 Enoxaparin Sodium (Lovenox) 30 mg DAILY SUBQ 06/24/17 09:00 07/04/17 08:59 06/24/17 09:10 Ferrous Sulfate (Feosol) 325 mg THREE TIMES A DAY ORAL 06/24/17 09:00 07/24/17 08:59 06/24/17 12:59 Lidocaine (Lidoderm 5% PATCH) 1 patch DAILY TDERMAL 06/22/17 16:00 07/22/17 15:59 06/24/17 09:06 Lorazepam (Ativan 2mg/ml 1ml) 0.5 mg Q4H PRN IV For Anxiety 06/20/17 20:00 06/27/17 19:59 Magnesium Hydroxide (Mom) 30 ml DAILYPRN PRN ORAL Constipation 06/23/17 20:00 07/23/17 19:59 Morphine Sulfate (Morphine Sulfate) 2 mg Q4H PRN IVP severe pain 7-10 06/24/17 08:30 07/01/17 08:29 06/24/17 13:10 Ondansetron HCl (Zofran) 4 mg Q6H PRN IVP Nausea & Vomiting 06/20/17 20:00 07/20/17 19:59 Polyethylene Glycol (Miralax) 17 gm HSPRN PRN ORAL Constipation 06/20/17 20:00 07/20/17 19:59 Zolpidem Tartrate (Ambien) 5 mg HSPRN PRN ORAL Insomnia 06/20/17 20:00 06/27/17 19:59 06/23/17 00:08 MINDI WALDEN Jun 24, 2017 17:23
--- NOTE | 2017-06-24 19:27 | Internal Med Progress Note ---
Subjective Date of Service: Jun 24, 2017 Physician Name Finn,Alan Attending Physician Thomas Pierson MD Current Medications Medications (Trade) Dose Ordered Sig/Jennifer Route PRN Reason Start Time Stop Time Status Last Admin Dose Admin Acetaminophen (Tylenol) 650 mg Q4H PRN ORAL Mild Pain (Pain Scale 1-3) 06/23/17 17:00 07/23/17 16:59 Acetaminophen (Tylenol) 650 mg Q4H PRN ORAL fever 06/20/17 20:00 07/20/17 19:59 Acetaminophen/ Hydrocodone Bitart ([place] 7.5/325) 1 ea Q4H PRN ORAL Moderate Pain (Pain Scale 4-6) 06/23/17 20:00 06/30/17 19:59 06/24/17 00:08 Al Hydroxide/Mg Hydroxide (Mylanta II) 30 ml Q6H PRN ORAL dyspepsia 06/20/17 20:00 07/20/17 19:59 Amlodipine Besylate (Norvasc) 5 mg DAILY ORAL 06/21/17 09:00 07/21/17 08:59 06/23/17 09:08 Atorvastatin Calcium (Lipitor) 20 mg BEDTIME ORAL 06/20/17 21:00 07/20/17 20:59 06/23/17 20:18 Bupropion HCl (Wellbutrin SR) 150 mg TWICE A DAY ORAL 06/21/17 21:00 07/21/17 20:59 06/24/17 17:49 Dextrose (Dextrose 50%) STAT PRN IV Hypoglycemia 06/20/17 20:00 07/20/17 19:59 Dextrose/ Electrolytes 1,000 ml @ 75 mls/hr [id number] IV 06/23/17 20:30 07/23/17 20:29 06/24/17 11:20 Docusate Sodium (Colace) 100 mg THREE TIMES A DAY ORAL 06/24/17 09:00 07/24/17 08:59 06/24/17 17:50 Enoxaparin Sodium (Lovenox) 30 mg DAILY SUBQ 06/24/17 09:00 07/04/17 08:59 06/24/17 09:10 Ferrous Sulfate (Feosol) 325 mg THREE TIMES A DAY ORAL 06/24/17 09:00 07/24/17 08:59 06/24/17 17:50 Lidocaine (Lidoderm 5% PATCH) 1 patch DAILY TDERMAL 06/22/17 16:00 07/22/17 15:59 06/24/17 09:06 Lorazepam (Ativan 2mg/ml 1ml) 0.5 mg Q4H PRN IV For Anxiety 06/20/17 20:00 06/27/17 19:59 Magnesium Hydroxide (Mom) 30 ml DAILYPRN PRN ORAL Constipation 06/23/17 20:00 07/23/17 19:59 Morphine Sulfate (Morphine Sulfate) 2 mg Q4H PRN IVP severe pain 7-10 06/24/17 08:30 07/01/17 08:29 06/24/17 17:51 Ondansetron HCl (Zofran) 4 mg Q6H PRN IVP Nausea & Vomiting 06/20/17 20:00 07/20/17 19:59 Polyethylene Glycol (Miralax) 17 gm HSPRN PRN ORAL Constipation 06/20/17 20:00 07/20/17 19:59 Zolpidem Tartrate (Ambien) 5 mg HSPRN PRN ORAL Insomnia 06/20/17 20:00 06/27/17 19:59 06/23/17 00:08 Allergies: Coded Allergies: No Known Allergies (Unverified , 12/28/13) ROS Limited/Unobtainable: No Constitutional: Reports: no symptoms HEENT: Reports: no symptoms Cardiovascular: Reports: no symptoms Respiratory: Reports: no symptoms Gastrointestinal/Abdominal: Reports: no symptoms Genitourinary: Reports: no symptoms Neurologic/Psychiatric: Reports: no symptoms Subjective 82 YO F admitted with right hip fracture. S/P ORIF right intertrochanteric fracture 06/23/17. Cover for Int Kevyn-Dr Pierson Objective Last Vital Signs Date Time Temp Pulse Resp B/P (MAP) Pulse Ox O2 Delivery O2 Flow Rate FiO2 06/24/17 15:44 98.3 78 20 124/69 98 06/24/17 12:00 Room Air 06/23/17 18:30 3.0 Laboratory Tests Test 06/24/17 05:20 White Blood Count 8.6 K/UL (4.8-10.8) Red Blood Count 3.24 M/UL (4.20-5.40) L Hemoglobin 9.1 G/DL (12.0-16.0) L Hematocrit 28.2 % (37.0-47.0) L Mean Corpuscular Volume 87 FL (80-99) Mean Corpuscular Hemoglobin 28.2 PG (27.0-31.0) Mean Corpuscular Hemoglobin Concent 32.3 G/DL (32.0-36.0) Red Cell Distribution Width 11.9 % (11.6-14.8) Platelet Count 435 K/UL (150-450) Mean Platelet Volume 6.3 FL (6.5-10.1) L Neutrophils (%) (Auto) 77.1 % (45.0-75.0) H Lymphocytes (%) (Auto) 13.7 % (20.0-45.0) L Monocytes (%) (Auto) 6.1 % (1.0-10.0) Eosinophils (%) (Auto) 2.4 % (0.0-3.0) Basophils (%) (Auto) 0.7 % (0.0-2.0) Sodium Level 137 MMOL/L (136-145) Potassium Level 4.7 MMOL/L (3.5-5.1) Chloride Level 103 MMOL/L (98-107) Carbon Dioxide Level 31 MMOL/L (21-32) Anion Gap 3 mmol/L (5-15) L Blood Urea Nitrogen 11 mg/dL (7-18) Creatinine 0.8 MG/DL (0.55-1.30) Estimat Glomerular Filtration Rate mL/min (>60) Glucose Level 126 MG/DL (74-106) H Calcium Level 8.4 MG/DL (8.5-10.1) L Intake and Output 06/24/17 06/25/17 19:00 07:00 Intake Total 1215 ml Output Total 250 ml Balance 965 ml Intake Oral 540 ml IV Total 675 ml Output Urine Total 250 ml Objective PHYSICAL EXAMINATION: VITAL SIGNS: On admission, temperature 97.9, pulse of 98, respirations 18, and blood pressure 116/85. GENERAL: The patient is awake and responsive, in no acute distress. HEAD AND NECK: Pupils are reactive to light. Extraocular movements are intact. NECK: Supple. No JVD. LUNGS: Good air entry. No wheezing or rales. HEART: S1, S2. Regular rhythm. No gallops. ABDOMEN: Soft, nondistended, and nondistended. Positive bowel sounds. EXTREMITIES: No cyanosis, clubbing, or edema. Right lower extremity shorter than left and lateral rotated on the hip and pelvic area, pain over the left hip area. NEUROLOGIC: Cranial nerves II through XII are grossly intact. The patient moves all extremities except the right lower extremity due to the pain and limitation of movement. Assessment/Plan Assessment/Plan Assessment/Plan Mechanical fall with Right hip intertrochanteric fracture Hypertension Depression and Anxiety Anemia PLAN: S/P ORIF 06/23/17. Tolerating regular diet. Heparin SQ Full code IVF Pain Medications Acute rehab ALAN Malik Jun 24, 2017 19:27
[2017-06-24 20:00] VITALS: BP 116/61
[2017-06-24] MEDS: Atorvastatin 20mg tab ORAL SCH (21:10)
[2017-06-24] MEDS: Zolpidem 5mg tab ORAL PRN (23:18)
[2017-06-25] VITALS: BP 104/57
[2017-06-25 04:00] VITALS: BP 117/65
[2017-06-25 05:29] LABS: BASOPHILS % (AUTO) 0.7 % (0.0-2.0); EOSINOPHILS % (AUTO) 4.2 % (0.0-3.0); LYMPHOCYTES % (AUTO) 14.4 % (20.0-45.0); MEAN CORPUSCULAR HEMOGLOBIN 29.6 PG (27.0-31.0); MEAN CORPUSCULAR HGB CONC 33.9 G/DL (32.0-36.0); MEAN CORPUSCULAR VOLUME 87 FL (80-99); MEAN PLATELET VOLUME 6.2 FL (6.5-10.1); MONOCYTES % (AUTO) 10.6 % (1.0-10.0); NEUTROPHILS % (AUTO) 70.1 % (45.0-75.0); PLATELET COUNT 423 K/UL (150-450); RED BLOOD COUNT 2.87 M/UL (4.20-5.40); RED CELL DISTRIBUTION WIDTH 12.3 % (11.6-14.8); WHITE BLOOD COUNT 7.3 K/UL (4.8-10.8)
[2017-06-25 06:10] LABS: ALANINE AMINOTRANSFERASE 17 U/L (12-78); ALBUMIN/GLOBULIN RATIO 0.8 (1.0-2.7); ANION GAP 5 mmol/L (5-15); ASPARTATE AMINO TRANSFERASE 22 U/L (15-37); CALCIUM 8.3 MG/DL (8.5-10.1); CARBON DIOXIDE 28 MMOL/L (21-32); CHLORIDE 105 MMOL/L (98-107); CREATININE 0.8 MG/DL (0.55-1.30); MAGNESIUM 1.7 MG/DL (1.8-2.4); PHOSPHORUS 3.2 MG/DL (2.5-4.9); SODIUM 138 MMOL/L (136-145); TOTAL PROTEIN 5.3 G/DL (6.4-8.2)
[2017-06-25 08:00] VITALS: BP 119/68
--- NOTE | 2017-06-25 08:07 | Orthopedic Progress Note ---
Orthopedic - Progress Note Subjective Symptoms: other - has been refusing PT. has not been OOB. does not want blood transfusion Objective Vital Signs Laboratory Tests Test 06/25/17 04:50 White Blood Count 7.3 K/UL (4.8-10.8) Red Blood Count 2.87 M/UL (4.20-5.40) L Hemoglobin 8.5 G/DL (12.0-16.0) L Hematocrit 25.0 % (37.0-47.0) L Mean Corpuscular Volume 87 FL (80-99) Mean Corpuscular Hemoglobin 29.6 PG (27.0-31.0) Mean Corpuscular Hemoglobin Concent 33.9 G/DL (32.0-36.0) Red Cell Distribution Width 12.3 % (11.6-14.8) Platelet Count 423 K/UL (150-450) Mean Platelet Volume 6.2 FL (6.5-10.1) L Neutrophils (%) (Auto) 70.1 % (45.0-75.0) Lymphocytes (%) (Auto) 14.4 % (20.0-45.0) L Monocytes (%) (Auto) 10.6 % (1.0-10.0) H Eosinophils (%) (Auto) 4.2 % (0.0-3.0) H Basophils (%) (Auto) 0.7 % (0.0-2.0) Sodium Level 138 MMOL/L (136-145) Potassium Level 4.0 MMOL/L (3.5-5.1) Chloride Level 105 MMOL/L (98-107) Carbon Dioxide Level 28 MMOL/L (21-32) Anion Gap 5 mmol/L (5-15) Blood Urea Nitrogen 10 mg/dL (7-18) Creatinine 0.8 MG/DL (0.55-1.30) Estimat Glomerular Filtration Rate mL/min (>60) Glucose Level 107 MG/DL (74-106) H Calcium Level 8.3 MG/DL (8.5-10.1) L Phosphorus Level 3.2 MG/DL (2.5-4.9) Magnesium Level 1.7 MG/DL (1.8-2.4) L Total Bilirubin 0.5 MG/DL (0.2-1.0) Aspartate Amino Transf (AST/SGOT) 22 U/L (15-37) Alanine Aminotransferase (ALT/SGPT) 17 U/L (12-78) Alkaline Phosphatase 76 U/L (46-116) Total Protein 5.3 G/DL (6.4-8.2) L Albumin 2.3 G/DL (3.4-5.0) L Globulin 3.0 g/dL Albumin/Globulin Ratio 0.8 (1.0-2.7) L Last 24 Hour Vital Signs Date Time Temp Pulse Resp B/P (MAP) Pulse Ox O2 Delivery O2 Flow Rate FiO2 06/25/17 04:00 97.3 86 16 117/65 96 Room Air 06/25/17 00:00 98.4 89 16 104/57 96 Room Air 06/24/17 20:00 98.5 98 16 116/61 98 Room Air 06/24/17 15:44 98.3 78 20 124/69 98 06/24/17 12:00 98.6 88 19 116/61 96 Room Air 06/24/17 09:41 98.1 06/24/17 09:22 88 16 96 06/24/17 08:27 88 99/46 Wound: clean, dry, intact Drains: none Neuro Status: normal Vascular Status: normal Additional Comments Xray reviewed Assessment Post-op Diagnosis POD 2 Procedure Performed rt hip orif Plan Plan: PT, discharge plan - rehab likely, other - pt does not want blood transfusion. Monitor H&H tomorrow. if drops further would recommend. dressing change today. f/u ortho 2 weeks as outpt JARRETT MCKAY Jun 25, 2017 08:07
--- NOTE | 2017-06-25 08:15 | General Progress Note ---
Assessment/Plan Assessment/Plan (1) Right hip pain (2) Right hip Fracture (3) S/p ORIF of right hip Pt will be continued on Morphine, [place] and Lidoderm patch D/w Dr. Vale and he concurred. Subjective Date patient seen: Jun 25, 2017 Time patient seen: 07:30 - am Allergies: Coded Allergies: No Known Allergies (Unverified , 12/28/13) Subjective REVIEW OF SYSTEMS: Denies rash, fever, chills, sweating, dizziness, drowsiness, or change in her weight. No shortness of breath, chest pain, palpitations, or cough. No nausea, vomiting, diarrhea, or blood in the stool or urine. No bowel or bladder incontinence. She is complaining of right hip pain. SUBJECTIVE: Patient states that the pain is worse with movement and reduced to a moderate level on the Morphine. Objective Last 24 Hour Vital Signs Date Time Temp Pulse Resp B/P (MAP) Pulse Ox O2 Delivery O2 Flow Rate FiO2 06/25/17 04:00 97.3 86 16 117/65 96 Room Air 06/25/17 00:00 98.4 89 16 104/57 96 Room Air 06/24/17 20:00 98.5 98 16 116/61 98 Room Air 06/24/17 15:44 98.3 78 20 124/69 98 06/24/17 12:00 98.6 88 19 116/61 96 Room Air 06/24/17 09:41 98.1 06/24/17 09:22 88 16 96 06/24/17 08:27 88 99/46 Laboratory Tests 06/25/17 04:50: White Blood Count 7.3, Red Blood Count 2.87L, Hemoglobin 8.5L, Hematocrit 25.0L , Mean Corpuscular Volume 87, Mean Corpuscular Hemoglobin 29.6, Mean Corpuscular Hemoglobin Concent 33.9, Red Cell Distribution Width 12.3, Platelet Count 423, Mean Platelet Volume 6.2L, Neutrophils (%) (Auto) 70.1, Lymphocytes ( %) (Auto) 14.4L, Monocytes (%) (Auto) 10.6H, Eosinophils (%) (Auto) 4.2H, Basophils (%) (Auto) 0.7, Sodium Level 138, Potassium Level 4.0, Chloride Level 105, Carbon Dioxide Level 28, Anion Gap 5, Blood Urea Nitrogen 10, Creatinine 0.8, Estimat Glomerular Filtration Rate , Glucose Level 107H, Calcium Level 8.3L , Phosphorus Level 3.2, Magnesium Level 1.7L, Total Bilirubin 0.5, Aspartate Amino Transf (AST/SGOT) 22, Alanine Aminotransferase (ALT/SGPT) 17, Alkaline Phosphatase 76, Total Protein 5.3L, Albumin 2.3L, Globulin 3.0, Albumin/ Globulin Ratio 0.8L Height (Feet): 5 Height (Inches): 8.00 Weight (Pounds): 119 Objective GENERAL: Alert, awake, and oriented. HEENT: PERRLA. NECK: Range of motion is full in all directions. No tenderness to paracervical muscles. No adenopathy. LUNGS: Clear to auscultation bilaterally. HEART: Regular. ABDOMEN: Benign. BACK: Range of motion is full in flexion and extension. No tenderness to paraspinous muscles, trapezius, and rhomboid muscles. EXTREMITIES: Lower extremity range of motion is decreased due to the patient's condition with tenderness to palpation of the right hip. Bandages applied. NEURO: No changes. REBECCA JOHNSON Jun 25, 2017 08:15
[2017-06-25] MEDS: BuPROPion SR 150mg tab ORAL SCH ×2 (08:52→17:38)
[2017-06-25] MEDS: Docusate 100mg cap ORAL SCH ×3 (08:53→17:38)
[2017-06-25] MEDS: Enoxaparin 30mg Inj SUBQ SCH (08:58)
[2017-06-25] MEDS: Morphine Sulfate 2mg/ml Inj IVP PRN (11:41)
[2017-06-25 11:55] VITALS: BP 111/69
--- NOTE | 2017-06-25 12:53 | Internal Med Progress Note ---
Subjective Date of Service: Jun 25, 2017 Physician Name Alan Finn Attending Physician Thomas Pierson MD Current Medications Medications (Trade) Dose Ordered Sig/Jennifer Route PRN Reason Start Time Stop Time Status Last Admin Dose Admin Acetaminophen (Tylenol) 650 mg Q4H PRN ORAL Mild Pain (Pain Scale 1-3) 06/23/17 17:00 07/23/17 16:59 Acetaminophen (Tylenol) 650 mg Q4H PRN ORAL fever 06/20/17 20:00 07/20/17 19:59 Acetaminophen/ Hydrocodone Bitart ([place] 7.5/325) 1 ea Q4H PRN ORAL Moderate Pain (Pain Scale 4-6) 06/23/17 20:00 06/30/17 19:59 06/24/17 21:11 Al Hydroxide/Mg Hydroxide (Mylanta II) 30 ml Q6H PRN ORAL dyspepsia 06/20/17 20:00 07/20/17 19:59 Amlodipine Besylate (Norvasc) 5 mg DAILY ORAL 06/21/17 09:00 07/21/17 08:59 06/25/17 08:52 Atorvastatin Calcium (Lipitor) 20 mg BEDTIME ORAL 06/20/17 21:00 07/20/17 20:59 06/24/17 21:10 Bupropion HCl (Wellbutrin SR) 150 mg TWICE A DAY ORAL 06/21/17 21:00 07/21/17 20:59 06/25/17 08:52 Dextrose (Dextrose 50%) STAT PRN IV Hypoglycemia 06/20/17 20:00 07/20/17 19:59 Docusate Sodium (Colace) 100 mg THREE TIMES A DAY ORAL 06/24/17 09:00 07/24/17 08:59 06/25/17 08:53 Enoxaparin Sodium (Lovenox) 30 mg DAILY SUBQ 06/24/17 09:00 07/04/17 08:59 06/25/17 08:58 Ferrous Sulfate (Feosol) 325 mg THREE TIMES A DAY ORAL 06/24/17 09:00 07/24/17 08:59 06/25/17 08:52 Lidocaine (Lidoderm 5% PATCH) 1 patch DAILY TDERMAL 06/22/17 16:00 07/22/17 15:59 06/25/17 08:52 Lorazepam (Ativan 2mg/ml 1ml) 0.5 mg Q4H PRN IV For Anxiety 06/20/17 20:00 06/27/17 19:59 Magnesium Hydroxide (Mom) 30 ml DAILYPRN PRN ORAL Constipation 06/23/17 20:00 07/23/17 19:59 Morphine Sulfate (Morphine Sulfate) 2 mg Q4H PRN IVP severe pain 7-10 06/24/17 08:30 07/01/17 08:29 06/25/17 11:41 Ondansetron HCl (Zofran) 4 mg Q6H PRN IVP Nausea & Vomiting 06/20/17 20:00 07/20/17 19:59 Polyethylene Glycol (Miralax) 17 gm HSPRN PRN ORAL Constipation 06/20/17 20:00 07/20/17 19:59 Zolpidem Tartrate (Ambien) 5 mg HSPRN PRN ORAL Insomnia 06/20/17 20:00 06/27/17 19:59 06/24/17 23:18 Allergies: Coded Allergies: No Known Allergies (Unverified , 12/28/13) ROS Limited/Unobtainable: No Constitutional: Reports: no symptoms HEENT: Reports: no symptoms Cardiovascular: Reports: no symptoms Respiratory: Reports: no symptoms Gastrointestinal/Abdominal: Reports: no symptoms Genitourinary: Reports: no symptoms Neurologic/Psychiatric: Reports: no symptoms Subjective 82 YO F admitted with right hip fracture. S/P ORIF right intertrochanteric fracture 06/23/17. Refused blood transfusion. Walked a few steps this am with physical therapy. Cover for Int Kevyn-Dr Pierson Objective Last Vital Signs Date Time Temp Pulse Resp B/P (MAP) Pulse Ox O2 Delivery O2 Flow Rate FiO2 06/25/17 11:55 97.6 94 18 111/69 98 Room Air 06/23/17 18:30 3.0 Laboratory Tests Test 06/25/17 04:50 White Blood Count 7.3 K/UL (4.8-10.8) Red Blood Count 2.87 M/UL (4.20-5.40) L Hemoglobin 8.5 G/DL (12.0-16.0) L Hematocrit 25.0 % (37.0-47.0) L Mean Corpuscular Volume 87 FL (80-99) Mean Corpuscular Hemoglobin 29.6 PG (27.0-31.0) Mean Corpuscular Hemoglobin Concent 33.9 G/DL (32.0-36.0) Red Cell Distribution Width 12.3 % (11.6-14.8) Platelet Count 423 K/UL (150-450) Mean Platelet Volume 6.2 FL (6.5-10.1) L Neutrophils (%) (Auto) 70.1 % (45.0-75.0) Lymphocytes (%) (Auto) 14.4 % (20.0-45.0) L Monocytes (%) (Auto) 10.6 % (1.0-10.0) H Eosinophils (%) (Auto) 4.2 % (0.0-3.0) H Basophils (%) (Auto) 0.7 % (0.0-2.0) Sodium Level 138 MMOL/L (136-145) Potassium Level 4.0 MMOL/L (3.5-5.1) Chloride Level 105 MMOL/L (98-107) Carbon Dioxide Level 28 MMOL/L (21-32) Anion Gap 5 mmol/L (5-15) Blood Urea Nitrogen 10 mg/dL (7-18) Creatinine 0.8 MG/DL (0.55-1.30) Estimat Glomerular Filtration Rate mL/min (>60) Glucose Level 107 MG/DL (74-106) H Calcium Level 8.3 MG/DL (8.5-10.1) L Phosphorus Level 3.2 MG/DL (2.5-4.9) Magnesium Level 1.7 MG/DL (1.8-2.4) L Total Bilirubin 0.5 MG/DL (0.2-1.0) Aspartate Amino Transf (AST/SGOT) 22 U/L (15-37) Alanine Aminotransferase (ALT/SGPT) 17 U/L (12-78) Alkaline Phosphatase 76 U/L (46-116) Total Protein 5.3 G/DL (6.4-8.2) L Albumin 2.3 G/DL (3.4-5.0) L Globulin 3.0 g/dL Albumin/Globulin Ratio 0.8 (1.0-2.7) L Objective PHYSICAL EXAMINATION: VITAL SIGNS: On admission, temperature 97.9, pulse of 98, respirations 18, and blood pressure 116/85. GENERAL: The patient is awake and responsive, in no acute distress. HEAD AND NECK: Pupils are reactive to light. Extraocular movements are intact. NECK: Supple. No JVD. LUNGS: Good air entry. No wheezing or rales. HEART: S1, S2. Regular rhythm. No gallops. ABDOMEN: Soft, nondistended, and nondistended. Positive bowel sounds. EXTREMITIES: No cyanosis, clubbing, or edema. Right lower extremity shorter than left and lateral rotated on the hip and pelvic area, pain over the left hip area. NEUROLOGIC: Cranial nerves II through XII are grossly intact. The patient moves all extremities except the right lower extremity due to the pain and limitation of movement. Assessment/Plan Assessment/Plan Assessment/Plan Mechanical fall with Right hip intertrochanteric fracture Hypertension Depression and Anxiety Anemia PLAN: S/P ORIF 06/23/17. Tolerating regular diet. Heparin SQ Full code IVF Pain Medications Acute rehab eval[facility] Jun 25, 2017 12:53
[2017-06-25] MEDS: Norco 7.5mg/325mg tab ORAL PRN ×2 (13:20→21:10)
--- NOTE | 2017-06-25 15:06 | Physician Query ---
PLEASE COMPLETE DOCUMENT BEFORE SIGNING Dear Dr Pierson, PLEASE ANSWER THE QUERY BEFORE SIGNING. THANK YOU. Exercise your independent professional judgment when responding to the query. Questions asked do not imply a particular answer is desired or expected. We greatly appreciate your clarification on this issue. CLINICAL DOCUMENTATION STATES: "Shortly after initial evaluation in the emergency, the patient was noted to have the right hip fracture and subsequently was admitted to the hospital for possible surgical intervention" documented in the H/P of Dr. Thomas Pierson CLINICAL FINDINGS SHOW: Right hip intertrochanteric fracture with comminution. S/P Right hip open reduction and internal fixation with a short gamma 125-degree nail with 85 mm lag screw. BMI=18.1 Albumin:2.8, 2.6 Please select the most appropriate option: [] Mild Protein/Calorie Malnutrition [x] Moderate Protein/Calorie Malnutrition >Serum albumin 2.8 to 3.4 g/dL or Pre-albumin 5 to 7 mg/dl (3) >Inadequate nutritional intake (1, 2, 3, 4) >NPO > 5 days >Weight loss: 5% in 1 month or 7.5% in 3 months or 10% in 6 months (1,3,4) >BMI 16 to 18.4 or Weight <90 of ideal body weight (1,2,3,4) [ ] Severe Protein Calorie Malnutrition >Serum Albumin < 2.8 g/dL (1,2) >Lymphocytes < 1500/uL (2) >Inadequate nutritional intake3 , high stress e.g. major trauma, sepsis, pancreatitis, rocha etc. >Decubitus ulcers (1,2) , skin breakdown(2), easy hair pluckability >Weight <80% standard for height (2) >Triceps skin fold <3 mm2 >Mid-arm muscle circumference <25 cm2 >Creatinine-height index <60% standard (2) _ [] Hypoalbuminemia [] Emancipated w/ Malnutrition [] Kwashiorkor (rare in [place]) [] Marasmus [] Other [] Unable to determine [x] Not Applicable Condition Present on Admission: [x] Yes [] No [ ] Unable to determine Please also document in your Progress Notes and/or Discharge Summary and indicate if the condition was present on admission. Thomas Pierson MD Date/Time Steven References: 1 [facility] [place] Board. (2007). Nutritional support strategy for protein -energy malnutrition in the elderly. Clinical Practice Guidelines. 2 Anna Marie Reaves (2011). Malnutrition and nutritional assessment. In Matt Ortiz (18th Ed.) Brooks's Principle of Internal Medicine (450-287) [place], [place]: [facility] 3 Sana Perez (2001). Clinical Nutrition: Protein-energy malnutrition in the inpatient. [place] [employer] Journal, vol. 165 no. 10 (pp. 1345- 1347 ). 4 Campos Rhodes (2012). Geriactric Nutrition: Nutritional Issues in Older Adults. [email or web address]
[2017-06-25 16:50] VITALS: BP 106/54
[2017-06-25] MEDS ORDERED: Flu Vaccine Quadrivalent 0.5ml IM ONE (17:30)
[2017-06-25] MEDS ORDERED: Tubing IV Secondary IV ONE (18:10)
[2017-06-25 20:26] VITALS: BP 112/59
[2017-06-25] MEDS: Atorvastatin 20mg tab ORAL SCH (21:10)
[2017-06-25] MEDS: Zolpidem 5mg tab ORAL PRN (23:38)
[2017-06-26 00:21] VITALS: BP 131/71
[2017-06-26 04:00] VITALS: BP 133/69
[2017-06-26] MEDS: Morphine Sulfate 2mg/ml Inj IVP PRN ×2 (05:05→09:08)
[2017-06-26 07:37] LABS: BASOPHILS % (AUTO) 1.2 % (0.0-2.0); EOSINOPHILS % (AUTO) 5.3 % (0.0-3.0); LYMPHOCYTES % (AUTO) 13.1 % (20.0-45.0); MEAN CORPUSCULAR HEMOGLOBIN 27.6 PG (27.0-31.0); MEAN CORPUSCULAR HGB CONC 31.6 G/DL (32.0-36.0); MEAN CORPUSCULAR VOLUME 87 FL (80-99); MEAN PLATELET VOLUME 6.3 FL (6.5-10.1); MONOCYTES % (AUTO) 10.1 % (1.0-10.0); NEUTROPHILS % (AUTO) 70.3 % (45.0-75.0); PLATELET COUNT 468 K/UL (150-450); RED BLOOD COUNT 3.14 M/UL (4.20-5.40); WHITE BLOOD COUNT 7.6 K/UL (4.8-10.8)
[2017-06-26 07:47] LABS: ANION GAP 6 mmol/L (5-15); CALCIUM 8.8 MG/DL (8.5-10.1); CARBON DIOXIDE 29 MMOL/L (21-32); CHLORIDE 105 MMOL/L (98-107); CREATININE 0.8 MG/DL (0.55-1.30); POTASSIUM 4.8 MMOL/L (3.5-5.1); SODIUM 140 MMOL/L (136-145)
[2017-06-26 08:00] VITALS: BP 141/79
--- NOTE | 2017-06-26 08:54 | General Progress Note ---
Assessment/Plan Assessment/Plan (1) Right hip pain (2) Right hip Fracture (3) S/p ORIF of right hip Pt will be continued on Morphine, [place] and Lidoderm patch D/w Dr. Vale and he concurred. Subjective Date patient seen: Jun 26, 2017 Time patient seen: 07:15 - am Allergies: Coded Allergies: No Known Allergies (Unverified , 12/28/13) Subjective REVIEW OF SYSTEMS: Denies rash, fever, chills, sweating, dizziness, drowsiness, or change in her weight. No shortness of breath, chest pain, palpitations, or cough. No nausea, vomiting, diarrhea, or blood in the stool or urine. No bowel or bladder incontinence. She is complaining of right hip pain. SUBJECTIVE: Patient is laying in bed and reports that the pain is at a moderate to severe level at times more so with movement. The pain is reduced to a mild level on the [place] and Morphine allowing her to do PT to the best of her abilities. Objective Last 24 Hour Vital Signs Date Time Temp Pulse Resp B/P (MAP) Pulse Ox O2 Delivery O2 Flow Rate FiO2 06/26/17 08:00 97.3 100 18 141/79 99 Room Air 06/26/17 05:35 97.7 06/26/17 04:00 Room Air 06/26/17 04:00 97.7 94 18 133/69 99 Room Air 06/26/17 00:22 Room Air 06/26/17 00:21 98.1 100 20 131/71 96 06/25/17 20:27 Room Air 06/25/17 20:26 98.3 88 18 112/59 95 06/25/17 16:50 98.7 89 18 106/54 98 Room Air 06/25/17 11:55 97.6 94 18 111/69 98 Room Air Laboratory Tests 06/26/17 06:44: White Blood Count 7.6, Red Blood Count 3.14L, Hemoglobin 8.7L, Hematocrit 27.5L , Mean Corpuscular Volume 87, Mean Corpuscular Hemoglobin 27.6, Mean Corpuscular Hemoglobin Concent 31.6L, Red Cell Distribution Width 12.0, Platelet Count 468H, Mean Platelet Volume 6.3L, Neutrophils (%) (Auto) 70.3, Lymphocytes (%) (Auto) 13.1L, Monocytes (%) (Auto) 10.1H, Eosinophils (%) (Auto ) 5.3H, Basophils (%) (Auto) 1.2, Sodium Level 140, Potassium Level 4.8, Chloride Level 105, Carbon Dioxide Level 29, Anion Gap 6, Blood Urea Nitrogen 15 , Creatinine 0.8, Estimat Glomerular Filtration Rate , Glucose Level 89, Calcium Level 8.8 Height (Feet): 5 Height (Inches): 8.00 Weight (Pounds): 119 Objective GENERAL: Alert, awake, and oriented. HEENT: PERRLA. NECK: Range of motion is full in all directions. No tenderness to paracervical muscles. No adenopathy. LUNGS: Clear to auscultation bilaterally. HEART: Regular. ABDOMEN: Benign. BACK: Range of motion is full in flexion and extension. No tenderness to paraspinous muscles, trapezius, and rhomboid muscles. EXTREMITIES: Lower extremity range of motion is decreased due to the patient's condition with tenderness to palpation of the right hip. Bandages applied. NEURO: No changes. REBECCA JOHNSON Jun 26, 2017 08:54
[2017-06-26] MEDS: BuPROPion SR 150mg tab ORAL SCH ×2 (09:07→17:51)
[2017-06-26] MEDS: Docusate 100mg cap ORAL SCH ×3 (09:07→17:50)
[2017-06-26] MEDS: Enoxaparin 30mg Inj SUBQ SCH (09:11)
--- NOTE | 2017-06-26 11:02 | Diagnostic Imaging Report ---
Indication: FX pain, status post fall, intraoperative Technique: Intraoperative images Comparison: 06/22/2017 Findings: Intraoperative images document surgical repair of previously reported right hip intertrochanteric fracture. Impression: Intraoperative imaging, as described
--- NOTE | 2017-06-26 11:02 | Diagnostic Imaging Report ---
Indication: POST-OP, pain, fracture, status post ORIF Technique: One view of the pelvis Comparison: 06/22/2017 Findings: Interim surgical repair of previously demonstrated right hip intertrochanteric fracture with compression screw and medullary montez. This appears well aligned. There is gas within the soft tissues, presumably retained air from the surgical wound Impression: Postoperative right hip. No unusual features
--- NOTE | 2017-06-26 11:03 | Cardiology Report ---
APPROVED REPORT EKG Measurement Heart [id number] [id number] Sinus rhythm with occasional premature ventricular complexes Left axis deviation Nonspecific ST and T wave abnormality Abnormal ECG
--- NOTE | 2017-06-26 11:04 | Cardiology Report ---
APPROVED REPORT EKG Measurement Heart [id number] NE 170P84 [id number] Normal sinus rhythm Possible Left atrial enlargement Left axis deviation Incomplete right bundle branch block Possible Anteroseptal infarct, age undetermined Abnormal ECG
[2017-06-26 12:00] VITALS: BP 114/65
[2017-06-26] MEDS: Norco 7.5mg/325mg tab ORAL PRN ×2 (13:58→20:30)
--- NOTE | 2017-06-26 14:11 | Pulmonology Progress Note ---
Assessment/Plan Problems: (1) Hip fracture (2) Depression (3) Mitral valve prolapse Assessment/Plan pain controlled pain is controlled dvt prophylaxis pt.ot dc planning to [place] [facility] for today Subjective ROS Limited/Unobtainable: No Constitutional: Reports: no symptoms HEENT: Repors: no symptoms Respiratory: Reports: no symptoms Allergies: Coded Allergies: No Known Allergies (Unverified , 12/28/13) Objective Last 24 Hour Vital Signs Date Time Temp Pulse Resp B/P (MAP) Pulse Ox O2 Delivery O2 Flow Rate FiO2 06/26/17 12:00 98.3 89 18 114/65 100 06/26/17 09:07 100 141/79 06/26/17 08:00 97.3 100 18 141/79 99 Room Air 06/26/17 05:35 97.7 06/26/17 04:00 Room Air 06/26/17 04:00 97.7 94 18 133/69 99 Room Air 06/26/17 00:22 Room Air 06/26/17 00:21 98.1 100 20 131/71 96 06/25/17 20:27 Room Air 06/25/17 20:26 98.3 88 18 112/59 95 06/25/17 16:50 98.7 89 18 106/54 98 Room Air Intake and Output 06/26/17 06/27/17 19:00 07:00 Intake Total 480 ml Balance 480 ml Intake Oral 480 ml # Voids 3 Objective General Appearance: WD/WN Lines, tubes and drains: peripheral, HEENT: normocephalic, atraumatic Neck: non-tender, normal alignment Respiratory/Chest: chest wall non-tender, lungs clear, normal breath sounds Breasts: no masses Cardiovascular/Chest: normal rate Abdomen: normal bowel sounds Extremities: normal range of motion Laboratory Tests 06/26/17 06:44: White Blood Count 7.6, Red Blood Count 3.14L, Hemoglobin 8.7L, Hematocrit 27.5L , Mean Corpuscular Volume 87, Mean Corpuscular Hemoglobin 27.6, Mean Corpuscular Hemoglobin Concent 31.6L, Red Cell Distribution Width 12.0, Platelet Count 468H, Mean Platelet Volume 6.3L, Neutrophils (%) (Auto) 70.3, Lymphocytes (%) (Auto) 13.1L, Monocytes (%) (Auto) 10.1H, Eosinophils (%) (Auto ) 5.3H, Basophils (%) (Auto) 1.2, Sodium Level 140, Potassium Level 4.8, Chloride Level 105, Carbon Dioxide Level 29, Anion Gap 6, Blood Urea Nitrogen 15 , Creatinine 0.8, Estimat Glomerular Filtration Rate , Glucose Level 89, Calcium Level 8.8 Current Medications Medications (Trade) Dose Ordered Sig/Jennifer Route PRN Reason Start Time Stop Time Status Last Admin Dose Admin Acetaminophen (Tylenol) 650 mg Q4H PRN ORAL Mild Pain (Pain Scale 1-3) 06/23/17 17:00 07/23/17 16:59 Acetaminophen (Tylenol) 650 mg Q4H PRN ORAL fever 06/20/17 20:00 07/20/17 19:59 Acetaminophen/ Hydrocodone Bitart ([place] 7.5/325) 1 ea Q4H PRN ORAL Moderate Pain (Pain Scale 4-6) 06/23/17 20:00 06/30/17 19:59 06/26/17 13:58 Al Hydroxide/Mg Hydroxide (Mylanta II) 30 ml Q6H PRN ORAL dyspepsia 06/20/17 20:00 07/20/17 19:59 Amlodipine Besylate (Norvasc) 5 mg DAILY ORAL 06/21/17 09:00 07/21/17 08:59 06/26/17 09:07 Atorvastatin Calcium (Lipitor) 20 mg BEDTIME ORAL 06/20/17 21:00 07/20/17 20:59 06/25/17 21:10 Bupropion HCl (Wellbutrin SR) 150 mg TWICE A DAY ORAL 06/21/17 21:00 07/21/17 20:59 06/26/17 09:07 Dextrose (Dextrose 50%) STAT PRN IV Hypoglycemia 06/20/17 20:00 07/20/17 19:59 Docusate Sodium (Colace) 100 mg THREE TIMES A DAY ORAL 06/24/17 09:00 07/24/17 08:59 06/26/17 13:58 Enoxaparin Sodium (Lovenox) 30 mg DAILY SUBQ 06/24/17 09:00 07/04/17 08:59 06/26/17 09:11 Ferrous Sulfate (Feosol) 325 mg THREE TIMES A DAY ORAL 06/24/17 09:00 07/24/17 08:59 06/26/17 13:57 Lidocaine (Lidoderm 5% PATCH) 1 patch DAILY TDERMAL 06/22/17 16:00 07/22/17 15:59 06/26/17 09:07 Lorazepam (Ativan 2mg/ml 1ml) 0.5 mg Q4H PRN IV For Anxiety 06/20/17 20:00 06/27/17 19:59 Magnesium Hydroxide (Mom) 30 ml DAILYPRN PRN ORAL Constipation 06/23/17 20:00 07/23/17 19:59 Morphine Sulfate (Morphine Sulfate) 2 mg Q4H PRN IVP severe pain 7-10 06/24/17 08:30 07/01/17 08:29 06/26/17 09:08 Ondansetron HCl (Zofran) 4 mg Q6H PRN IVP Nausea & Vomiting 06/20/17 20:00 07/20/17 19:59 Polyethylene Glycol (Miralax) 17 gm HSPRN PRN ORAL Constipation 06/20/17 20:00 07/20/17 19:59 Zolpidem Tartrate (Ambien) 5 mg HSPRN PRN ORAL Insomnia 06/20/17 20:00 06/27/17 19:59 06/25/17 23:38 MINDI WALDEN Jun 26, 2017 14:11
[2017-06-26 16:00] VITALS: BP 132/73
--- NOTE | 2017-06-26 19:15 | Internal Med Progress Note ---
Subjective Date of Service: Jun 26, 2017 Physician Name Alan Mosqueda Attending Physician Thomas Pierson MD Current Medications Medications (Trade) Dose Ordered Sig/Jennifer Route PRN Reason Start Time Stop Time Status Last Admin Dose Admin Acetaminophen (Tylenol) 650 mg Q4H PRN ORAL Mild Pain (Pain Scale 1-3) 06/23/17 17:00 07/23/17 16:59 Acetaminophen (Tylenol) 650 mg Q4H PRN ORAL fever 06/20/17 20:00 07/20/17 19:59 Acetaminophen/ Hydrocodone Bitart ([place] 7.5/325) 1 ea Q4H PRN ORAL Moderate Pain (Pain Scale 4-6) 06/23/17 20:00 06/30/17 19:59 06/26/17 13:58 Al Hydroxide/Mg Hydroxide (Mylanta II) 30 ml Q6H PRN ORAL dyspepsia 06/20/17 20:00 07/20/17 19:59 Amlodipine Besylate (Norvasc) 5 mg DAILY ORAL 06/21/17 09:00 07/21/17 08:59 06/26/17 09:07 Atorvastatin Calcium (Lipitor) 20 mg BEDTIME ORAL 06/20/17 21:00 07/20/17 20:59 06/25/17 21:10 Bupropion HCl (Wellbutrin SR) 150 mg TWICE A DAY ORAL 06/21/17 21:00 07/21/17 20:59 06/26/17 09:07 Dextrose (Dextrose 50%) STAT PRN IV Hypoglycemia 06/20/17 20:00 07/20/17 19:59 Docusate Sodium (Colace) 100 mg THREE TIMES A DAY ORAL 06/24/17 09:00 07/24/17 08:59 06/26/17 17:50 Enoxaparin Sodium (Lovenox) 30 mg DAILY SUBQ 06/24/17 09:00 07/04/17 08:59 06/26/17 09:11 Ferrous Sulfate (Feosol) 325 mg THREE TIMES A DAY ORAL 06/24/17 09:00 07/24/17 08:59 06/26/17 17:51 Lidocaine (Lidoderm 5% PATCH) 1 patch DAILY TDERMAL 06/22/17 16:00 07/22/17 15:59 06/26/17 09:07 Lorazepam (Ativan 2mg/ml 1ml) 0.5 mg Q4H PRN IV For Anxiety 06/20/17 20:00 06/27/17 19:59 Magnesium Hydroxide (Mom) 30 ml DAILYPRN PRN ORAL Constipation 06/23/17 20:00 07/23/17 19:59 Morphine Sulfate (Morphine Sulfate) 2 mg Q4H PRN IVP severe pain 7-10 06/24/17 08:30 07/01/17 08:29 06/26/17 09:08 Ondansetron HCl (Zofran) 4 mg Q6H PRN IVP Nausea & Vomiting 06/20/17 20:00 07/20/17 19:59 Polyethylene Glycol (Miralax) 17 gm HSPRN PRN ORAL Constipation 06/20/17 20:00 07/20/17 19:59 Zolpidem Tartrate (Ambien) 5 mg HSPRN PRN ORAL Insomnia 06/20/17 20:00 06/27/17 19:59 06/25/17 23:38 Allergies: Coded Allergies: No Known Allergies (Unverified , 12/28/13) ROS Limited/Unobtainable: No Constitutional: Reports: no symptoms HEENT: Reports: no symptoms Cardiovascular: Reports: no symptoms Respiratory: Reports: no symptoms Gastrointestinal/Abdominal: Reports: no symptoms Genitourinary: Reports: no symptoms Neurologic/Psychiatric: Reports: no symptoms Subjective 82 YO F admitted with right hip fracture. S/P ORIF right intertrochanteric fracture 06/23/17. Refused blood transfusion. Walked a few steps this am with physical therapy. Cover for Int Kevyn-Dr Pierson Objective Last Vital Signs Date Time Temp Pulse Resp B/P (MAP) Pulse Ox O2 Delivery O2 Flow Rate FiO2 06/26/17 16:00 98.5 100 18 132/73 96 06/26/17 08:00 Room Air 06/23/17 18:30 3.0 Laboratory Tests Test 06/26/17 06:44 White Blood Count 7.6 K/UL (4.8-10.8) Red Blood Count 3.14 M/UL (4.20-5.40) L Hemoglobin 8.7 G/DL (12.0-16.0) L Hematocrit 27.5 % (37.0-47.0) L Mean Corpuscular Volume 87 FL (80-99) Mean Corpuscular Hemoglobin 27.6 PG (27.0-31.0) Mean Corpuscular Hemoglobin Concent 31.6 G/DL (32.0-36.0) L Red Cell Distribution Width 12.0 % (11.6-14.8) Platelet Count 468 K/UL (150-450) H Mean Platelet Volume 6.3 FL (6.5-10.1) L Neutrophils (%) (Auto) 70.3 % (45.0-75.0) Lymphocytes (%) (Auto) 13.1 % (20.0-45.0) L Monocytes (%) (Auto) 10.1 % (1.0-10.0) H Eosinophils (%) (Auto) 5.3 % (0.0-3.0) H Basophils (%) (Auto) 1.2 % (0.0-2.0) Sodium Level 140 MMOL/L (136-145) Potassium Level 4.8 MMOL/L (3.5-5.1) Chloride Level 105 MMOL/L (98-107) Carbon Dioxide Level 29 MMOL/L (21-32) Anion Gap 6 mmol/L (5-15) Blood Urea Nitrogen 15 mg/dL (7-18) Creatinine 0.8 MG/DL (0.55-1.30) Estimat Glomerular Filtration Rate mL/min (>60) Glucose Level 89 MG/DL (74-106) Calcium Level 8.8 MG/DL (8.5-10.1) Intake and Output 06/26/17 06/27/17 19:00 07:00 Intake Total 680 ml Balance 680 ml Intake Oral 680 ml # Voids 5 Objective PHYSICAL EXAMINATION: VITAL SIGNS: On admission, temperature 97.9, pulse of 98, respirations 18, and blood pressure 116/85. GENERAL: The patient is awake and responsive, in no acute distress. HEAD AND NECK: Pupils are reactive to light. Extraocular movements are intact. NECK: Supple. No JVD. LUNGS: Good air entry. No wheezing or rales. HEART: S1, S2. Regular rhythm. No gallops. ABDOMEN: Soft, nondistended, and nondistended. Positive bowel sounds. EXTREMITIES: No cyanosis, clubbing, or edema. Right lower extremity shorter than left and lateral rotated on the hip and pelvic area, pain over the left hip area. NEUROLOGIC: Cranial nerves II through XII are grossly intact. The patient moves all extremities except the right lower extremity due to the pain and limitation of movement. Assessment/Plan Assessment/Plan Assessment/Plan Mechanical fall with Right hip intertrochanteric fracture Hypertension Depression and Anxiety Anemia PLAN: S/P ORIF 06/23/17. Tolerating regular diet. Heparin SQ Full code IVF Pain Medications [facility] [place] AL[facility]QUEDA Jun 26, 2017 19:14
[2017-06-26 20:00] VITALS: BP 129/79
[2017-06-26] MEDS: Atorvastatin 20mg tab ORAL SCH (21:00)
[2017-06-27] VITALS: BP 118/70
[2017-06-27] MEDS: Zolpidem 5mg tab ORAL PRN (01:36)
[2017-06-27 04:00] VITALS: BP 127/72
[2017-06-27 05:48] LABS: EOSINOPHILS % (AUTO) 4.6 % (0.0-3.0); LYMPHOCYTES % (AUTO) 16.4 % (20.0-45.0); MEAN CORPUSCULAR HEMOGLOBIN 28.3 PG (27.0-31.0); MEAN CORPUSCULAR HGB CONC 32.5 G/DL (32.0-36.0); MEAN CORPUSCULAR VOLUME 87 FL (80-99); MEAN PLATELET VOLUME 6.1 FL (6.5-10.1); MONOCYTES % (AUTO) 8.4 % (1.0-10.0); NEUTROPHILS % (AUTO) 69.7 % (45.0-75.0); PLATELET COUNT 464 K/UL (150-450); RED BLOOD COUNT 2.93 M/UL (4.20-5.40); RED CELL DISTRIBUTION WIDTH 12.1 % (11.6-14.8); WHITE BLOOD COUNT 6.8 K/UL (4.8-10.8)
[2017-06-27 06:03] LABS: ANION GAP 5 mmol/L (5-15); CALCIUM 8.6 MG/DL (8.5-10.1); CARBON DIOXIDE 29 MMOL/L (21-32); CHLORIDE 105 MMOL/L (98-107); CREATININE 0.8 MG/DL (0.55-1.30); POTASSIUM 3.9 MMOL/L (3.5-5.1); SODIUM 139 MMOL/L (136-145)
[2017-06-27] MEDS: Norco 7.5mg/325mg tab ORAL PRN (06:23)
--- NOTE | 2017-06-27 06:53 | General Progress Note ---
Assessment/Plan Assessment/Plan (1) Right hip pain (2) Right hip Fracture (3) S/p ORIF of right hip Pt will be continued on Morphine, [place] and Lidoderm patch D/w Dr. Vale and he concurred. Subjective Date patient seen: Jun 27, 2017 Time patient seen: 06:30 - am Allergies: Coded Allergies: No Known Allergies (Unverified , 12/28/13) Subjective REVIEW OF SYSTEMS: Denies rash, fever, chills, sweating, dizziness, drowsiness, or change in her weight. No shortness of breath, chest pain, palpitations, or cough. No nausea, vomiting, diarrhea, or blood in the stool or urine. No bowel or bladder incontinence. She is complaining of right hip pain. SUBJECTIVE: Patient reports that her pain is at a moderate level on the [place] and Morphine. She has no new complaints. Objective Last 24 Hour Vital Signs Date Time Temp Pulse Resp B/P (MAP) Pulse Ox O2 Delivery O2 Flow Rate FiO2 06/27/17 04:00 97.9 90 18 127/72 97 Room Air 06/27/17 00:00 98.7 88 18 118/70 96 06/26/17 20:00 Room Air 06/26/17 20:00 97.7 89 18 129/79 97 06/26/17 16:00 98.5 100 18 132/73 96 06/26/17 12:00 98.3 89 18 114/65 100 06/26/17 09:07 100 141/79 06/26/17 08:00 97.3 100 18 141/79 99 Room Air Laboratory Tests 06/27/17 04:40: White Blood Count 6.8, Red Blood Count 2.93L, Hemoglobin 8.3L, Hematocrit 25.5L , Mean Corpuscular Volume 87, Mean Corpuscular Hemoglobin 28.3, Mean Corpuscular Hemoglobin Concent 32.5, Red Cell Distribution Width 12.1, Platelet Count 464H, Mean Platelet Volume 6.1L, Neutrophils (%) (Auto) 69.7, Lymphocytes (%) (Auto) 16.4L, Monocytes (%) (Auto) 8.4, Eosinophils (%) (Auto) 4.6H, Basophils (%) (Auto) 1.0, Sodium Level 139, Potassium Level 3.9, Chloride Level 105, Carbon Dioxide Level 29, Anion Gap 5, Blood Urea Nitrogen 18, Creatinine 0.8, Estimat Glomerular Filtration Rate , Glucose Level 90, Calcium Level 8.6 Height (Feet): 5 Height (Inches): 8.00 Weight (Pounds): 119 Objective GENERAL: Alert, awake, and oriented. HEENT: PERRLA. NECK: Range of motion is full in all directions. No tenderness to paracervical muscles. No adenopathy. LUNGS: Clear to auscultation bilaterally. HEART: Regular. ABDOMEN: Benign. BACK: Range of motion is full in flexion and extension. No tenderness to paraspinous muscles, trapezius, and rhomboid muscles. EXTREMITIES: Lower extremity range of motion is decreased due to the patient's condition with tenderness to palpation of the right hip. Bandages applied. NEURO: No changes. REBECCA JOHNSON Jun 27, 2017 06:53
[2017-06-27 08:00] VITALS: BP 120/59
--- NOTE | 2017-06-27 08:31 | Pulmonology Progress Note ---
Assessment/Plan Assessment/Plan ASSESSMENT comminuted right proximal femur intertrochanteric fracture with mild impaction and angulation. s/p ORIF R hip fracture osteoporosis dehydration depression anemia mild pulmonary HTN HTN moderate protein calorie malnutrition PLAN OF CARE MS floor pain management OOB with PT fall precautions DVT prophylaxis surgery follows patient declined blood transfusion iron supplements goal to keep Hgb above 8 ECHO with pEF 60-65% and RVSP of 40 c/w mild pulmonary HTN BP management with CCB and optimize as needed Bowel regimen continue Wellbutrin dc plan to SNF for PT/OT case discussed and evaluated by supervising physician Subjective Allergies: Coded Allergies: No Known Allergies (Unverified , 12/28/13) Subjective working with PT short distance still afebrile, no signs of distress Objective Last 24 Hour Vital Signs Date Time Temp Pulse Resp B/P (MAP) Pulse Ox O2 Delivery O2 Flow Rate FiO2 06/27/17 04:00 97.9 90 18 127/72 97 Room Air 06/27/17 00:00 98.7 88 18 118/70 96 06/26/17 20:00 Room Air 06/26/17 20:00 97.7 89 18 129/79 97 06/26/17 16:00 98.5 100 18 132/73 96 06/26/17 12:00 98.3 89 18 114/65 100 06/26/17 09:07 100 141/79 General Appearance: no acute distress, cachetic, other - A/A/O x3 elderly female HEENT: normocephalic, atraumatic, anicteric, mucous membranes moist Respiratory/Chest: lungs clear, no respiratory distress, no accessory muscle use Cardiovascular: normal peripheral pulses, normal rate, no JVD Abdomen: soft, non tender Genitourinary: normal external genitalia Extremities: no edema, pedal pulses normal Skin: other - dressing R hip C/D/I Neurologic/Psychiatric: abnormal gait, alert, oriented x 3, responsive Laboratory Tests 06/27/17 04:40: White Blood Count 6.8, Red Blood Count 2.93L, Hemoglobin 8.3L, Hematocrit 25.5L , Mean Corpuscular Volume 87, Mean Corpuscular Hemoglobin 28.3, Mean Corpuscular Hemoglobin Concent 32.5, Red Cell Distribution Width 12.1, Platelet Count 464H, Mean Platelet Volume 6.1L, Neutrophils (%) (Auto) 69.7, Lymphocytes (%) (Auto) 16.4L, Monocytes (%) (Auto) 8.4, Eosinophils (%) (Auto) 4.6H, Basophils (%) (Auto) 1.0, Sodium Level 139, Potassium Level 3.9, Chloride Level 105, Carbon Dioxide Level 29, Anion Gap 5, Blood Urea Nitrogen 18, Creatinine 0.8, Estimat Glomerular Filtration Rate , Glucose Level 90, Calcium Level 8.6 Current Medications Medications (Trade) Dose Ordered Sig/Jennifer Route PRN Reason Start Time Stop Time Status Last Admin Dose Admin Acetaminophen (Tylenol) 650 mg Q4H PRN ORAL Mild Pain (Pain Scale 1-3) 06/23/17 17:00 07/23/17 16:59 Acetaminophen (Tylenol) 650 mg Q4H PRN ORAL fever 06/20/17 20:00 07/20/17 19:59 Acetaminophen/ Hydrocodone Bitart ([place] 7.5/325) 1 ea Q4H PRN ORAL Moderate Pain (Pain Scale 4-6) 06/23/17 20:00 06/30/17 19:59 06/27/17 06:23 Al Hydroxide/Mg Hydroxide (Mylanta II) 30 ml Q6H PRN ORAL dyspepsia 06/20/17 20:00 07/20/17 19:59 Amlodipine Besylate (Norvasc) 5 mg DAILY ORAL 06/21/17 09:00 07/21/17 08:59 06/26/17 09:07 Atorvastatin Calcium (Lipitor) 20 mg BEDTIME ORAL 06/20/17 21:00 07/20/17 20:59 06/26/17 21:00 Bupropion HCl (Wellbutrin SR) 150 mg TWICE A DAY ORAL 06/21/17 21:00 07/21/17 20:59 06/26/17 09:07 Dextrose (Dextrose 50%) STAT PRN IV Hypoglycemia 06/20/17 20:00 07/20/17 19:59 Docusate Sodium (Colace) 100 mg THREE TIMES A DAY ORAL 06/24/17 09:00 07/24/17 08:59 06/26/17 17:50 Enoxaparin Sodium (Lovenox) 30 mg DAILY SUBQ 06/24/17 09:00 07/04/17 08:59 06/26/17 09:11 Ferrous Sulfate (Feosol) 325 mg THREE TIMES A DAY ORAL 06/24/17 09:00 07/24/17 08:59 06/26/17 17:51 Lidocaine (Lidoderm 5% PATCH) 1 patch DAILY TDERMAL 06/22/17 16:00 07/22/17 15:59 06/26/17 09:07 Lorazepam (Ativan 2mg/ml 1ml) 0.5 mg Q4H PRN IV For Anxiety 06/20/17 20:00 06/27/17 19:59 Magnesium Hydroxide (Mom) 30 ml DAILYPRN PRN ORAL Constipation 06/23/17 20:00 07/23/17 19:59 Morphine Sulfate (Morphine Sulfate) 2 mg Q4H PRN IVP severe pain 7-10 06/24/17 08:30 07/01/17 08:29 06/26/17 09:08 Ondansetron HCl (Zofran) 4 mg Q6H PRN IVP Nausea & Vomiting 06/20/17 20:00 07/20/17 19:59 Polyethylene Glycol (Miralax) 17 gm HSPRN PRN ORAL Constipation 06/20/17 20:00 07/20/17 19:59 Zolpidem Tartrate (Ambien) 5 mg HSPRN PRN ORAL Insomnia 06/20/17 20:00 06/27/17 19:59 06/27/17 01:36 [facility] Jun 27, 2017 08:31
[2017-06-27] MEDS: Docusate 100mg cap ORAL SCH ×3 (08:39→17:04)
[2017-06-27] MEDS: BuPROPion SR 150mg tab ORAL SCH ×2 (08:39→17:04)
[2017-06-27] MEDS: Enoxaparin 30mg Inj SUBQ SCH (08:41)
[2017-06-27 12:00] VITALS: BP 108/64
[2017-06-27] MEDS ORDERED: DIAZEPAM10 MG ORAL (14:29)
[2017-06-27] MEDS ORDERED: COLACE100 MG ORAL (15:46)
[2017-06-27] MEDS ORDERED: FEOSOL325 MG PO (15:47)
[2017-06-27] MEDS ORDERED: LOVENOX10 MG SUBQ (15:48)
[2017-06-27] MEDS ORDERED: LIDODERM700 M1 TOPIC (15:48)
[2017-06-27] MEDS ORDERED: AMBIEN5 MG ORAL (15:49)
[2017-06-27] MEDS ORDERED: MOM30 ML ORAL (15:50)
[2017-06-27] MEDS ORDERED: MIRALAX17 G2 ORAL (15:50)
[2017-06-27] MEDS ORDERED: NORCO 7.5-3251 EACH ORAL (15:52)
[2017-06-27] MEDS ORDERED: ACETAMINOPHEN120 MG ORAL (15:54)
[2017-06-27] MEDS ORDERED: ACETAMINOPHEN325 M1 ORAL (15:54)
[2017-06-27] MEDS ORDERED: MAALOX MAXIMUM355 M1 PO (15:57)
[2017-06-27 16:00] VITALS: BP 136/73
--- NOTE | 2017-06-27 19:14 | Internal Med Progress Note ---
Subjective Physician Name Thomas Pierson Attending Physician Thomas Pierson MD Allergies: Coded Allergies: No Known Allergies (Unverified , 12/28/13) Subjective awake, alert, responsive, NAD, pain controlled, No CP or SOB Objective Last Vital Signs Date Time Temp Pulse Resp B/P (MAP) Pulse Ox O2 Delivery O2 Flow Rate FiO2 06/27/17 16:00 98.7 99 18 136/73 100 06/27/17 04:00 Room Air 06/23/17 18:30 3.0 Laboratory Tests Test 06/27/17 04:40 White Blood Count 6.8 K/UL (4.8-10.8) Red Blood Count 2.93 M/UL (4.20-5.40) L Hemoglobin 8.3 G/DL (12.0-16.0) L Hematocrit 25.5 % (37.0-47.0) L Mean Corpuscular Volume 87 FL (80-99) Mean Corpuscular Hemoglobin 28.3 PG (27.0-31.0) Mean Corpuscular Hemoglobin Concent 32.5 G/DL (32.0-36.0) Red Cell Distribution Width 12.1 % (11.6-14.8) Platelet Count 464 K/UL (150-450) H Mean Platelet Volume 6.1 FL (6.5-10.1) L Neutrophils (%) (Auto) 69.7 % (45.0-75.0) Lymphocytes (%) (Auto) 16.4 % (20.0-45.0) L Monocytes (%) (Auto) 8.4 % (1.0-10.0) Eosinophils (%) (Auto) 4.6 % (0.0-3.0) H Basophils (%) (Auto) 1.0 % (0.0-2.0) Sodium Level 139 MMOL/L (136-145) Potassium Level 3.9 MMOL/L (3.5-5.1) Chloride Level 105 MMOL/L (98-107) Carbon Dioxide Level 29 MMOL/L (21-32) Anion Gap 5 mmol/L (5-15) Blood Urea Nitrogen 18 mg/dL (7-18) Creatinine 0.8 MG/DL (0.55-1.30) Estimat Glomerular Filtration Rate mL/min (>60) Glucose Level 90 MG/DL (74-106) Calcium Level 8.6 MG/DL (8.5-10.1) Intake and Output 06/27/17 06/28/17 19:00 07:00 Intake Total 640 ml Balance 640 ml Intake Oral 640 ml # Voids 2 Objective General: No acute distress, awake and alert HEENT: NCAT, sclera anicteric, PERRL, EOMI. Neck: Supple, no significant jugular venous distention, Lungs: Good inspiratory effort, clear to auscultation bilaterally, no Wheeze or Rales. Heart: Regular rate and rhythm, normal S1/S2, no murmurs Abdomen: soft, nontender, nondistended. Normoactive bowel sounds. / Rectal: Refused and deferred. Extremities: No Cyanosis , clubbing or edema. Right surgical incision intact. Neuro: A&O x 3, Able to move all extremities Skin: warm, no rashes or lesions Assessment/Plan Assessment/Plan Mechanical fall with Right hip intertrochanteric fracture S/P ORIF 06/23/17 Hypertension Depression and Anxiety Anemia PLAN: DC to SNF, [facility] of long discussion with patient to agree with SNF transfer Heparin SQ Full code Pain Medications PRN Thomas Pierson MD Jun 27, 2017 19:14
--- NOTE | 2017-06-30 09:23 | Discharge Summary ---
Discharge Summary Hospital Course Date of Admission Jun 20, 2017 at 17:58 Date of Discharge Jun 27, 2017 at 17:50 Admitting Diagnosis right intertrochanteric fracture HPI Zaira Bowser is a 82 year old female who was admitted on Jun 20, 2017 at 17: 58 for Right Inter-Trochanteric Fracture Hospital Course dc summary #[id number] Discharge Medications Continued Medications: Acetaminophen* (Acetaminophen 325MG Tablet*) 325 Mg Tablet 650 MG ORAL Q4H PRN for FEVER, TAB Acetaminophen* (Acetaminophen 325MG Tablet*) 325 Mg Tablet 650 MG ORAL Q4H PRN for MILD PAIN, TAB Amlodipine Besylate* (Amlodipine Besylate*) 5 Mg Tablet 5 MG ORAL DAILY, TAB Aspirin* (Aspirin*) 81 Mg Tab.chew 81 MG ORAL DAILY, TAB Atorvastatin Calcium* (Atorvastatin Calcium*) 20 Mg Tablet 20 MG ORAL BEDTIME, TAB Bupropion Sr* (Wellbutrin Sr*) 100 Mg Tablet.er 150 MG ORAL TWICE A DAY for 30 Days, TAB 0 Refills Diazepam* (Diazepam*) 10 Mg Tablet 10 MG ORAL DAILY , TAB 0 Refills Docusate Sodium* (Colace*) 100 Mg Capsule 100 MG ORAL THREE TIMES A DAY, CAP Enoxaparin* (Lovenox*) 30 Mg/0.3 Ml Inj 30 MG SUBQ DAILY, #30 EA 0 Refills Ferrous Sulfate (Feosol) 325 Mg Tablet 325 MG PO TID, TAB Hydrocodone Bit/Acetaminophen 7.5-325* ([place] 7.5-325*) 1 Each Tablet 1 TAB ORAL Q4H PRN for MODERATE PAIN, #30 TAB 0 Refills Ibuprofen (Ibuprofen*) 200 Mg Tablet 200 MG ORAL Q6H, #30 TAB 0 Refills Lidocaine (Lidoderm) 1 Each Adh..patch 1 PATCH TOPIC DAILY, #7 PATCH 0 Refills Patch(es) may remain in place for up to 12 hours in any 24-hour period. Mag Hydrox/Al Hydrox/Simeth (Maalox Maximum Strength Susp) 355 Ml Oral.susp 30 ML PO Q6HR for DYSPEPSIA, ML Magnesium Hydroxide (Milk of Magnesia) 400 Mg/5 Ml Oral.susp 30 ML ORAL DAILY for CONSTIPATION, ML Polyethylene Glycol 3350* (Miralax*) 17 Gm Powd.pack 17 GM ORAL HS for CONSTIPATIPN, PACKET Zolpidem Tartrate* (Ambien*) 5 Mg Tablet 5 MG ORAL BEDTIME PRN for Insomnia, TAB Discontinued Medications: Acetaminophen* (Tylenol*) 120 Mg Supp.rect 650 MG ORAL Q4H PRN for FEVER, SUPP Diazepam* (Diazepam*) 10 Mg Tablet 10 MG ORAL PRN, TAB 0 Refills Discharge Condition Upon Discharge: stable Discharge Disposition Patient was discharged to SNF/Subacute Facility(03) Discharge Diagnoses: Johnnie (Cammydinesh)[facility] NP Jun 30, 2017 09:23
--- NOTE | 2017-06-30 22:30 | Discharge Summary 2 SIG ---
DATE OF ADMISSION: 06/20/2017 DATE OF DISCHARGE: 06/27/2017 REASON FOR ADMISSION: 82 years old female with history of mitral valve prolapse, hypertension, and migraines, presented status post fall and right- sided hip pain. The patient stated she was vacuuming and subsequently fell backward on her right side. She denied loss of consciousness, blackouts, dizziness. No fevers. No chills. Vital signs were stable. CT of the pelvis revealed acute comminuted right proximal femur intertrochanteric fracture. Upon evaluation, noted anemia, hemoglobin -10.5 and hematocrit -33.6. No leukocytosis. The patient was admitted for further management with diagnosis of right hip fracture. HOSPITAL COURSE: The patient was admitted to medical/surgical floor. Orthopedic Surgery consult was requested. Pain management provided. DVT and GI prophylaxis provided. Orthopedic surgeon seen and evaluated the patient, ordered a 2D echo to be done prior to surgery. A 2D echo revealed preserved ejection fracture of 60% to 65%. Normal left ventricular chamber size, systolic function, and wall motion. Mild left ventricular hypertrophy. No evidence of pericardial effusion. Right ventricular systolic pressure of 40 consistent with mild pulmonary hypertension, and no mitral regurgitation. The patient was cleared to proceed with surgery. Risks and benefits were explained to the patient. The patient consented to surgery. The patient subsequently undergone right hip open reduction and internal fixation. Course of recovery was uneventful. Pain management was provided. DVT prophylaxis was provided. The patient was started to work with physical and occupational therapists. Fall precautions were maintained. The patient noted to have anemia. Patient declined blood transfusion. The patient was given iron supplement with goal to keep hemoglobin above 8. Prior to discharge, hemoglobin -8.3 and hematocrit- 25.5. Folate and B12 within normal limits. The patient was able to ambulate with physical therapist. Blood pressure was managed with calcium channel pili and was stable. Bowel regimen was instituted. [employer] recommendations were implemented. The patient tolerated diet. Wellbutrin was continued. The patient was stable for discharge to short-term [facility] for rehabilitation. FINAL DIAGNOSES: 1. Acute comminuted right proximal femur intertrochanteric fracture with mild impaction and angulation. 2. Status post open reduction and internal fixation of right hip fracture. 3. Osteoporosis. 4. Dehydration. 5. Anemia. 6. Depression. 7. Hypertension. 8. Mild pulmonary hypertension. 9. Moderate protein-calorie malnutrition. DISCHARGE MEDICATIONS: See medication reconciliation list. DISCHARGE INSTRUCTIONS: The patient was discharged to [facility]-term [facility] for rehabilitation, PT/OT skilled services. Thomas Pierson M.D. [facility] Connorsshirlene NJohnPJohn DR: Jennifer JOB#: [id number] CC: MARY
== END 2017-06-27 17:50 | DRG 481 ==
LOC: EDBD 16:44 → EMR 17:52 → 3E 17:58 → EDBEDREQ 18:00 → 3E 20:36
PROC: 0QS604Z Reposition Right Upper Femur with Internal Fixation Device, Open Approach (ICD-10-PCS; principal; 2017-06-20)
DX: S72.144A Nondisplaced intertrochanteric fracture of right femur, initial encounter for closed fracture (principal); Z68.1 Body mass index [BMI] 19.9 or less, adult; E44.0 Moderate protein-calorie malnutrition; I27.20 Pulmonary hypertension, unspecified; E86.0 Dehydration; D64.9 Anemia, unspecified; I34.1 Nonrheumatic mitral (valve) prolapse; I10 Essential (primary) hypertension; F32.9 Major depressive disorder, single episode, unspecified; W19.XXXA Unspecified fall, initial encounter; Y93.E3 Activity, vacuuming; Y92.019 Unspecified place in single-family (private) house as the place of occurrence of the external cause; M81.0 Age-related osteoporosis without current pathological fracture; E78.5 Hyperlipidemia, unspecified; F41.9 Anxiety disorder, unspecified; Z23 Encounter for immunization
CPT/HCPCS: 36415; 71010; 72170; 72192; 73521; 76001; 80048; 80053; 82270; 82378; 82607; 82746; 83540; 83550; 83615; 83735; 84100; 84443; 85007; 85025; 85044; 85060; 85610; 85651; 85730; 86850; 86900; 86901; 86920; 90630; 93005; 93306; 94003; 94150; 99285; J2250; J2405